=== PATIENT | male | born 1960 | race Caucasian/White ===

== ENCOUNTER 2019-09-27 01:13 | Outpatient (CLI) | payer BC, SELFPAY ==
[2019-09-27 19:18] LABS: SARS-CoV-2 RNA PCR Negative
== END 2019-09-27 01:14 | disposition home or self-care (01) ==
LOC: ANHCOVIDDT 01:14
PROVIDERS: PCP Family Medicine; Visit Provider Internal Medicine Gastroenterology
DX: Z01.818 Encounter for other preprocedural examination (principal); Z11.59 Encounter for screening for other viral diseases
CPT/HCPCS: 87635; C9803; U0003

== ENCOUNTER 2019-09-29 02:30 | Day surgery (SDC) | payer BC, SELFPAY ==
[2019-09-19 13:21] VITALS: BMI 26.1
--- NOTE | 2019-09-29 07:43 | WPDANESEPPF ---
Anes - Initial Pre Proc Eval Procedure: Operation Date: 09/29/19 11:00 Proposed Procedures p Screening Colonoscopy - Kal Lewis MD Date/Time: 09/29/19 07:43 Surgeon: Kal Lewis MD Pre Op Diagnosis: Neoplasm Screening Patient Data Age: 58 Gender: M Height: 1.8 m Weight: 85 kg Allergies Allergy/AdvReac Type Severity Reaction Status Date / Time No Known Drug Allergies Allergy Mild Other Verified 09/19/19 13:21 Home Medications Medication Instructions Recorded Confirmed Type atorvastatin 10 mg tablet 10 mg PO DAILY #90 tablet 08/15/19 09/19/19 Rx lisinopril 40 mg tablet 40 mg PO DAILY #90 tablet 08/15/19 09/19/19 Rx peg 3350-electrolytes 236 240 ml PO Q10M #4000 ml 09/08/19 Rx gram-22.74 gram-6.74 gram-5.86 gram solution Patient hx anesthesia problems: none Family hx anesthesia problems: none PMFSH Past Medical History Medical History (Updated 09/29/19 @ 07:44 by Rajesh Broussard MD) Acute sinusitis Benign colon polyp Cough Encounter for prostate cancer screening Mixed hyperlipidemia Overweight (BMI 25.0-29.9) Primary hypertension Seasonal allergic rhinitis Tobacco use disorder, continuous Social History Social History Smoking packs per day: 1.5 Smoking cigarettes per day: 30.0 Smoking status: Current every day smoker Tobacco type: cigarettes Alcohol intake: current Gender identity (if verbalized by the patient): Male Spiritual care concerns: No Anes - Eval Final PreProcedure Day of Procedure 09/29/19 07:43 Patient weight: overweight Heart: regular rate and rhythm Lungs: clear to auscultation and normal air movement Airway: Mallampati scale class II Neurological: alert and oriented Last oral intake: >/= 8 hours ASA classification: III Emergent: no Anesthetic plan: proceed Anesthesia type and monitoring: general GIVS Informed Consent: The patient's anesthetic plan and its attendant risks and benefits were discussed with the patient/family/POA. Questions were solicited and answers provided to the satisfaction of the patient/family/POA.
[2019-09-29] MEDS: LACTATED RINGERS 1,000 ML 150 ML IV CONT (10:07)
[2019-09-29 10:08] VITALS: BP 143/80; PULSE 75; RESP 20; TEMP 36.6; O2SAT 98
--- NOTE | 2019-09-29 10:35 | PM.HPGS ---
History of Present Illness History of Present Illness Consent: Risks, benefits, and alternatives have been discussed and questions answered. Patient agrees to proceed with procedure. Chief complaint: Neoplasm Screening Narrative: Terry Gonzalez is a 58 year old male with colon polyps 6 years ago Review of Systems Constitutional: Constitutional: Denies headache(s) and Denies weakness Eyes: Eyes: Denies blurry vision ENT: Reports Normal hearing present, Denies headache(s) and Denies neck pain Cardiovascular: Cardiovascular: Denies chest pain and Denies dyspnea Respiratory: Respiratory: Denies dyspnea Gastrointestinal: Gastrointestinal: Reports no additional gastrointestinal complaints Genitourinary: Genitourinary: Denies dysuria Musculoskeletal: Musculoskeletal: Denies neck pain Integumentary/Breasts: Skin/Breast: Denies dry skin Neurologic: Reports Normal hearing present, Denies headache(s) and Denies weakness Psychiatric: Psychiatric: Denies anxiety Endocrine: Endocrine: Denies change in body appearance Hematologic/Lymphatic: Hematologic/Lymphatic: Denies easy bleeding Allergic/Immunologic: Allergic/Immunologic: Denies urticaria PMFSH Past Medical History Medical History (Updated 09/29/19 @ 10:35 by Kal Lewis MD) Acute sinusitis Adenomatous colon polyp Benign colon polyp Cough Encounter for prostate cancer screening Mixed hyperlipidemia Overweight (BMI 25.0-29.9) Primary hypertension Seasonal allergic rhinitis Tobacco use disorder, continuous Social History Social History Smoking packs per day: 1.5 Smoking cigarettes per day: 30.0 Smoking status: Current every day smoker Tobacco type: cigarettes Alcohol intake: current Gender identity (if verbalized by the patient): Male Spiritual care concerns: No Meds Home Medications and Allergies Home Medications Medication Instructions Recorded Confirmed Type atorvastatin 10 mg tablet 10 mg PO DAILY #90 tablet 08/15/19 09/29/19 Rx lisinopril 40 mg tablet 40 mg PO DAILY #90 tablet 08/15/19 09/29/19 Rx Allergies Allergy/AdvReac Type Severity Reaction Status Date / Time No Known Drug Allergies Allergy Mild Other Verified 09/29/19 10:04 Vital Signs Vital Signs - 24 hr 09/29/19 10:08 Temperature 97.9 F Pulse Rate 75 Respiratory Rate 20 Blood Pressure 143/80 H Pulse Oximetry 98 Exam Const: General: comfortable and no acute distress HENMT: General nose exam: Normal nares present Eyes: General: appearance normal, both eyes and all related structures Neck: Neck: no JVD Resp: Auscultation: clear to auscultation bilaterally Cardio: Rate: regular rate Rhythm: regular rhythm GI: Inspection: non-distended GI Palp: Yes Soft to palpation Skin: General skin exam: normal color Neuro: General: gait normal Speech: normal speech Extrem: General: normal to inspection Psych: Mental Status: mental status grossly normal Assessment and Plan Assessment and plan (1) Adenomatous colon polyp: Code(s): D12.6 - Benign neoplasm of colon, unspecified Status: Acute Assessment and Plan: will proceed with colonoscopy (2) Primary hypertension: Code(s): I10 - Essential (primary) hypertension Status: Acute (3) Hemochromatosis, hereditary: Code(s): E83.110 - Hereditary hemochromatosis Status: Acute
[2019-09-29 10:59] VITALS: BP 87/57; PULSE 72; RESP 24; O2SAT 95
[2019-09-29 11:09] VITALS: BP 116/79; PULSE 69; RESP 22; O2SAT 95
[2019-09-29 11:19] VITALS: BP 123/69; PULSE 65; RESP 23; O2SAT 98
== END 2019-09-29 11:30 | disposition home or self-care (01) ==
PROVIDERS: PCP Family Medicine; Visit Provider Internal Medicine Gastroenterology
PROC: 0DJD8ZZ Inspection of Lower Intestinal Tract, Via Natural or Artificial Opening Endoscopic (ICD-10-PCS; CPT 45378; principal; 2019-09-29 11:00)
DX: Z12.11 Encounter for screening for malignant neoplasm of colon (principal); D12.2 Benign neoplasm of ascending colon; D12.8 Benign neoplasm of rectum; K63.5 Polyp of colon; K57.30 Diverticulosis of large intestine without perforation or abscess without bleeding; I10 Essential (primary) hypertension; E78.2 Mixed hyperlipidemia; F17.210 Nicotine dependence, cigarettes, uncomplicated
CPT/HCPCS: 45385; 88305; J2704; J7120

== ENCOUNTER 2020-02-18 20:26 | Emergency (ER) | payer BC, SELFPAY ==
[2020-02-18] VITALS (10 sets, daily range): BP systolic 115–170; BP diastolic 55–83; PULSE 72–87; RESP 13–22; TEMP 35.6; O2SAT 92–98
--- NOTE | ~2020-02-18 | CT_ITS ---
EXAMINATION: CT facial bones wo con DATE: 02/18/2020 21:46 INDICATION: Head injury TECHNIQUE: Computed tomography (CT) of the facial bones and maxillofacial region was performed withou t intravenous contrast. The dose-length product (DLP) was 296.37 mGy-cm. Automated exposure control a nd iterative reconstruction technique were employed. COMPARISON: None. FINDINGS: No acute facial fracture is identified. A polyp or mucous retention cyst is present in the right maxillary sinus. There is right facial and periorbital soft tissue swelling. The visualized por tions of the cervical spine demonstrate mild spondylosis. IMPRESSION: 1. No acute facial fracture identified. Reviewed, dictated and finalized at location A. MAN
--- NOTE | ~2020-02-18 | CT_ITS ---
EXAMINATION: CT brain wo con INDICATION: Head injury COMPARISON: None TECHNIQUE: Standard unenhanced head CT. The dose-length product (DLP) was 605.33 mGy-cm. The mA was a djusted according to patient size. Iterative reconstruction technique was employed. FINDINGS: There is no intracranial hemorrhage, acute infarction, or abnormal mass lesion. The ventric les are normal. There is no abnormal mass effect or midline shift. The jones-white matter differentiat ion is normal. The basal cisterns are patent. The orbits are normal. The paranasal sinuses, mastoids and calvarium are normal. IMPRESSION: 1. No acute intracranial abnormality. Reviewed, dictated and finalized at location A. HEAR OPERATOR
--- NOTE | 2020-02-18 20:51 | ECG_ITS ---
Measurements Intervals [place] Rate: 87 P: 70 VT: 169 QRS: 73 QRSD: 94 T: 34 QT: 338 QTc: 408 Interpretive Statements SINUS RHYTHM MINIMAL Q WAVES- INFERIOR LEADS BASELINE WANDER- I, II BORDERLINE ECG Electronically Signed On 02-19-2020 8:04:08 COMPOSING MACHINE OPERATOR by David Xavier D.O.
--- NOTE | 2020-02-18 21:43 | PC.NURSE ---
Patient taken to CT.
[2020-02-18 21:47] LABS: Basophils Absolute Auto 0.1 K/mm3 (0.0-0.1); Basophils Percent Auto 1.2 % (0.2-1.2); Eosinophils Absolute Auto 0.2 K/mm3 (0-0.3); Eosinophils Percent Auto 2.4 % (0-4.4); Hematocrit 44.2 % (42.0-52.0); Hemoglobin 15.3 g/dL (14.0-18.0); Immature Granulocyte Absolute 0.03 K/mm3 (0.00-0.031); Immature Granulocyte Percent A 0.4 % (0-0.5); Lymphocytes Absolute Auto 3.44 K/mm3 (0.9-3.2); Lymphocytes Percent Auto 40.6 % (18.3-44.2); Mean Corpuscular HGB Conc 34.6 g/dl (32-36); Mean Corpuscular Hemoglobin 35.6 pg (26-34); Mean Corpuscular Volume 102.8 fl (80-100); Monocytes Absolute Auto 1.3 K/mm3 (0.1-0.6); Monocytes Percent Auto 15.1 % (2.6-8.5); Neutrophils Absolute Auto 3.4 K/mm3 (1.3-6.7); Neutrophils Percent Auto 40.3 % (45.5-73.1); Platelet Count Result 232 k/mm3 (150-375); Red Cell Distribution Width 12.4 % (11.5-14.5); White Blood Count 8.5 K/mm3 (4.5-10.0)
[2020-02-18] MEDS: TETANUS,DIPHTHERIA,AC PERTUSSIS ADULT (0.5 ML) BOOSTRIX IM (21:50)
[2020-02-18 21:59] LABS: Lactic Acid Reflex 2.1 mmol/L (0.7-2.1)
[2020-02-18 22:00] LABS: Alanine Aminotransferase 20 U/L (4-50); Albumin Level 4.3 g/dL (3.5-5.1); Alkaline Phosphatase 66 U/L (38-126); Anion Gap 11 mmol/L (8-16); Aspartate Amino Transferase 29 U/L (17-59); Bilirubin,Total 0.4 mg/dL (0.2-1.3); Blood Urea Nitrogen 24 mg/dL (9-20); Calcium 9.1 mg/dL (8.4-10.2); Carbon Dioxide 25 mmol/L (22-30); Chloride 100 mmol/L (98-107); Estimated Glomerular Filt Rate > 60; Glucose 188 mg/dL (75-110); Potassium 3.7 mmol/L (3.4-5.0); Sodium 136 mmol/L (137-145)
[2020-02-18 22:04] LABS: Add Urine Microscopic? YES; Appearance Urine Clear (Clear); Bacteria Urine Trace /hpf; Bilirubin Urine Negative (Negative); Blood Urine Negative (Negative); Color Urine Straw (Yellow); Glucose Urine UA 2+ mg/dL (Negative); Ketones Urine Negative (Negative); Leukocyte Esterase Ur Trace LEU/UL (Negative); Mucus Urine Rare /lpf; Nitrate Urine Negative (Negative); Protein Urine Negative (Negative); RBC Urine 0-2 /hpf (0-2); Specific Grav Ur 1.014 (1.001-1.035); Squamous Epithelial Cell Urine Rare /hpf (Few); Urobilinogen Urine Negative mg/dL (<2.0)
[2020-02-18 22:12] LABS: Troponin I < 0.012 ng/mL (0.000-0.034)
--- NOTE | 2020-02-18 23:14 | ED.SYNCOPE ---
HPI - Syncope General Chief Complaint: Syncope Stated Complaint: fall Time Seen by Provider: 02/18/20 21:14 History of Present Illness HPI narrative: Patient is a 59-year-old gentleman who presents the emergency department with chief complaint of syncope. Patient reports he was at home got up and went to adjust the blinds he got to the blinds adjusted them and then the next the nose he woke up on the ground. The patient struck the right side of his face against the mantle of the fireplace and woke up slightly confused. The family noted no convulsive activity he reported initially no preceding symptoms. Related Data Home Medications Medication Instructions Recorded Confirmed calcium carbonate-vit D3-min tablet 02/18/20 [Calcium-Vitamin D] Allergies Allergy/AdvReac Type Severity Reaction Status Date / Time No Known Drug Allergies Allergy Mild Other Verified 02/18/20 20:38 Review of Systems Review of Systems: Narrative: A 10 system review of systems was completed on the patient and is negative except for what is stated in the HPI. Nursing and ancillary documentation was reviewed. [facility] Past Medical History Medical History Acute sinusitis Adenomatous colon polyp Benign colon polyp BMI 27.0-27.9,adult Cough Encounter for prostate cancer screening Mixed hyperlipidemia Overweight (BMI 25.0-29.9) Primary hypertension Seasonal allergic rhinitis Tobacco use disorder, continuous Family History Family History Mother Acute myocardial infarction, Onset Age: 72 Sibling Acute myocardial infarction, Onset Age: 54 Father Family history of throat cancer, Onset Age: 61 Social History Social History Smoking packs per day: 1.5 Smoking cigarettes per day: 30.0 Smoking status: Current every day smoker ( 1 and a half packs daily) Tobacco type: cigarettes Alcohol intake: current Gender identity (if verbalized by the patient): Male Spiritual care concerns: No Exam Narrative: Exam Narrative: GENERAL: Well-appearing, well-nourished, and in no acute distress. HEAD: Normocephalic, there is an abrasion to the right cheek there is a contusion around the right orbit there is a 2 cm laceration the right scalp. EYES: PERRLA and EOMI. ENT: Nares clear, no rhinorrhea or epistaxis. Mucous membranes moist. NECK: Supple. CHEST: Clear to auscultation. No respiratory distress. HEART: Regular rate and rhythm. No murmur heard. Normal peripheral pulses. ABDOMEN: Soft, nontender, nondistended, normal active bowel sounds. EXTREMITIES: Normal range of motion. No edema. SKIN: Warm, dry, no rash. NEURO: No focal deficits. Alert and oriented x3. PSYCH: Normal mood and affect. Course Course Emergency Course: Patient is currently back to his baseline. CT head shows no acute abnormality CT facial bones shows a questionable left maxilla fracture. Vital Signs Vital signs: Vital Signs Temperature 35.6 C L 02/18/20 20:29 Pulse Rate 87 02/18/20 20:29 Respiratory Rate 18 02/18/20 20:29 Blood Pressure 170/74 H 02/18/20 20:29 Pulse Oximetry 98 02/18/20 20:29 Temperature 35.6 C L 02/18/20 20:29 Pulse Rate 75 02/18/20 23:07 Respiratory Rate 15 02/18/20 23:07 Blood Pressure 131/71 02/18/20 22:14 Pulse Oximetry 95 02/18/20 23:07 Procedures Laceration Laceration 1: Date: 02/18/20 Time: 23:15 Site: scalp Side (If applicable): right Size (cm): 2 Description: linear Depth: simple, single layer Pre-repair: wound explored and irrigated ====== Skin Level ====== Skin layer closed with: marlo Number of sutures: 2 ====== Subcutaneous Layer ====== ====== Muscle Layer ====== ====== Tendon Lay
[2020-02-19 00:44] LABS: Reflex Lactic Acid Yes or No Add Lactic
== END 2020-02-18 23:37 | disposition home or self-care (01) ==
PROVIDERS: Emergency Medicine; Emergency Provider Emergency Medicine; PCP Family Medicine
DX: R55 Syncope and collapse (principal); S01.01XA Laceration without foreign body of scalp, initial encounter; Z87.19 Personal history of other diseases of the digestive system; E78.2 Mixed hyperlipidemia; I10 Essential (primary) hypertension; F17.210 Nicotine dependence, cigarettes, uncomplicated; W18.39XA Other fall on same level, initial encounter; R94.31 Abnormal electrocardiogram [ECG] [EKG]; Z23 Encounter for immunization
CPT/HCPCS: 12001; 36415; 70450; 70486; 80048; 80076; 81001; 83605; 84484; 85025; 90471; 90715; 93005; 99284

== ENCOUNTER 2020-05-06 12:39 | Outpatient (CLI) | payer BC, SELFPAY ==
--- NOTE | 2020-05-06 12:50 | ECHO_ITS ---
Patient Info Name: Terry Gonzalez Age: 59 years : 1960 Gender: Male Ht: 71 in Wt: 193 lbs BSA: 2.11 m2 HR: 67 bpm BP: 171 / 81 mmHg Heart Rhythm: Sinus Rhythm Exam Date: 05/06/2020 1:00 PM Exam Location: [facility] Patient Status: Outpatient Admit Date: 05/06/2020 Staff Ordering Physician: David Xavier DO Benefits Representative: Hiwot Bales RDCS Attending Provider: David Xavier DO Exam Type: CA echo doppler color flow Study Info Indications R55 - Syncope and collapse Complete two-dimensional, color flow and Doppler transthoracic echocardiogram is performed. Summary 1. Complete two-dimensional, color flow and Doppler transthoracic echocardiogram is performed. 2. Left ventricular chamber dimension is normal. 3. Left ventricular systolic function is normal, estimated at 60-65%. 4. The left ventricular diastolic function is grade II diastolic dysfunction. 5. Left atrial chamber dimension is mildly enlarged. 6. The mitral valve has mildly calcified annulus. 7. No pulmonary hypertension, estimated pulmonary arterial systolic pressure is 30 mmHg. Left Ventricle No tissue doppler. Left ventricular chamber dimension is normal. Left ventricular systolic function is normal, estimated at 60-65%. The left ventricular diastolic function is grade II diastolic dysfunction. Right Ventricle Right ventricular chamber dimension is normal. Right ventricular systolic function is normal. Left Atria Left atrial chamber dimension is mildly enlarged. Right Atria Right atrial chamber dimension is normal. Aortic Valve The aortic valve is trileaflet. There is no aortic valve stenosis. There is no aortic valve regurgitation. Pulmonic Valve There is no pulmonic regurgitation. Mitral Valve The mitral valve has mildly calcified annulus. There is no mitral valve stenosis. There is no mitral valve regurgitation. Tricuspid Valve There is no tricuspid valve regurgitation. No pulmonary hypertension, estimated pulmonary arterial systolic pressure is 30 mmHg. Pericardium/Pleural There is no pericardial effusion. Inferior Vena Cava Normal inferior vena cava with >50% collapse upon inspiration consistent with normal right atrial pressure, 5 mmHg. Aorta The aortic root size at the sinus of Valsalva is normal. Left Ventricular Outflow Tract Name Value Normal LVOT 2D LVOT Diameter 2.0 cm LVOT Doppler LVOT Peak Gradient 4 mmHg LVOT Mean Gradient 2 mmHg LVOT VTI 24 cm LVOT VTI/AV VTI Ratio 0.7 LVOT Stroke Volume 73 ml LVOT CO 10.7 l/min LVOT CI 5.1 l/min/m2 Pulmonic Valve Name Value Normal RVOT Doppler RVOT Peak Gradient
== END 2020-05-06 12:40 | disposition home or self-care (01) ==
LOC: ANHCARD 12:40
PROVIDERS: PCP Family Medicine; Visit Provider Internal Medicine Cardiovascular Disease
DX: R55 Syncope and collapse (principal)
CPT/HCPCS: 93306

== ENCOUNTER 2020-07-05 07:31 | Outpatient (CLI) | payer BC, SELFPAY ==
--- NOTE | 2020-07-17 11:43 | WPDHOMESLEEP ---
Sleep Study - Home Unattended Date of Study: 07/05/20 Ordering Provider: David Xavier DO Interpreting Provider: Rossana Rivera MD Home Sleep Study Type: Watch PAT Height: 1.8 m Weight: 87.543 kg Body Mass Index: 26.9 Neck Circumference (inches): 16.25 [place]: 4 Reason for Sleep Study Hypersomnia, fatigue Sleep History Terry Roberts is a 59-year-old man who frequently snores at night, and occasionally it is loud enough that others complain about it. He occasionally has coughing at night. He does not awaken from sleep feeling short of breath. He occasionally has trouble sleeping with a cold. He does not sweat excessively at night or notice heart pounding or beating irregularly night. He occasionally falls asleep during the day, never involuntarily and he never falls asleep while driving. He does not have loss of muscle tone with strong emotion. He does not have daytime difficulties due to excessive sleepiness. He does not feel paralyzed on waking or falling asleep. He rarely has vivid dreamlike scenes upon awakening or falling asleep. He does not feel afraid to go to sleep. He rarely has nightmares. He rarely remembers his dreams. He occasionally has racing thoughts. He does not feel sad, depressed or anxious. He does not have muscular tension. He rarely notices parts of his body jerking. He does not kick at night. He occasionally has crawling and aching feelings in his legs. He occasionally has any kind of pain at night. He does not have morning jaw pain. He occasionally grinds his teeth during sleep. He rarely is bothered by pain during the day. He never is awakened by pain during the night. He rarely wakes up feeling stiff in the morning with sore achy muscles and pain in the neck and spine. He has fatigue and fainting spells. Normal bedtime is 9:00 p.m. falling asleep within 1/2 hour, waking once at night to urinate. He takes him 30 minutes to return to sleep. He wakes at 5:00 a.m. On the weekends, he goes to bed at 10-11 pm, and wakes at 6:00 am. He takes naps in the afternoon or evenings. A short nap can be refreshing. Habits: Tobacco 1.5 ppd. Caffeine: 1 cup a day. Alcohol 4 per day. No recreational drugs. [facility] Past Medical History Medical History (Updated 07/17/20 @ 12:05 by Rossana Rivera MD) Acute bronchitis Acute sinusitis Adenomatous colon polyp Benign colon polyp BMI 27.0-27.9,adult Cough Encounter for prostate cancer screening Hemochromatosis, hereditary Mixed hyperlipidemia Overweight (BMI 25.0-29.9) Primary hypertension Scalp laceration Seasonal allergic rhinitis Syncope Tobacco use disorder, continuous Family History Family History Mother Acute myocardial infarction, Onset Age: 72 Sibling Acute myocardial infarction, Onset Age: 54 Father Family history of throat cancer, Onset Age: 61 Social History Social History Smoking packs per day: 1.5 Smoking cigarettes per day: 30.0 Smoking status: Current every day smoker Tobacco type: cigarettes Alcohol intake: current Gender identity (if verbalized by the patient): Male Spiritual care concerns: No Medications Home Medications Medication Instructions Recorded Confirmed Type atorvastatin 10 mg tablet 10 mg PO DAILY #90 tablet 08/15/19 05/13/20 Rx lisinopril 40 mg tablet 40 mg PO DAILY #90 tablet 08/15/19 05/13/20 Rx cholecalciferol (vitamin D3) 10 10 mcg PO DAILY 04/05/20 05/13/20 History mcg (400 unit) capsule azithromycin 250 mg tablet See Rx Instructions PO .COMPLEX #6 06/03/20 Rx tablet prednisone 20 mg tablet 20 mg PO DAILY #5 tablet 06/03/20 Rx Sleep Procedure The sleep study was completed using [employer] a technically adequate device with seven channels: peripheral arterial tone, actigraphy, body position, snore, respiratory movement, pulse o
[2020-07-17 11:54] VITALS: BMI 26.9
== END 2020-07-05 07:32 | disposition home or self-care (01) ==
LOC: ANHCSM 07:32
PROVIDERS: PCP Family Medicine; Visit Provider Internal Medicine Cardiovascular Disease
DX: G47.10 Hypersomnia, unspecified (principal); G47.33 Obstructive sleep apnea (adult) (pediatric); G47.31 Primary central sleep apnea
CPT/HCPCS: 95800

== ENCOUNTER 2020-09-27 08:56 | Outpatient (CLI) | payer BC, SELFPAY ==
--- NOTE | 2020-10-25 12:14 | WPDSLEEPSTUD ---
Sleep Study Date of Study: 09/27/20 Ordering Provider: David Xavier DO Interpreting Physician: Rossana Rivera MD Sleep Study Type: CPAP Titration Height: 1.8 m Weight: 87.543 kg Body Mass Index: 26.9 Neck Circumference (inches): 16.25 [place]: 6 Reason for Sleep Study Home sleep test July 05, 2020 showing moderate obstructive sleep apnea, AHI 17.2, with central apnea hypopnea index 7.9, presents for CPAP titration. Sleep History Terry Roberts is a 59-year-old man who frequently snores at night, and occasionally it is loud enough that others complain about it. He occasionally has coughing at night. He does not awaken from sleep feeling short of breath. He occasionally has trouble sleeping with a cold. He does not sweat excessively at night or notice heart pounding or beating irregularly night. He occasionally falls asleep during the day, never involuntarily and he never falls asleep while driving. He does not have loss of muscle tone with strong emotion. He does not have daytime difficulties due to excessive sleepiness. He does not feel paralyzed on waking or falling asleep. He rarely has vivid dreamlike scenes upon awakening or falling asleep. He does not feel afraid to go to sleep. He rarely has nightmares. He rarely remembers his dreams. He occasionally has racing thoughts. He does not feel sad, depressed or anxious. He does not have muscular tension. He rarely notices parts of his body jerking. He does not kick at night. He occasionally has crawling and aching feelings in his legs. He occasionally has any kind of pain at night. He does not have morning jaw pain. He occasionally grinds his teeth during sleep. He rarely is bothered by pain during the day. He never is awakened by pain during the night. He rarely wakes up feeling stiff in the morning with sore achy muscles and pain in the neck and spine. He has fatigue and fainting spells. Normal bedtime is 9:00 p.m. falling asleep within 1/2 hour, waking once at night to urinate. He takes him 30 minutes to return to sleep. He wakes at 5:00 a.m. On the weekends, he goes to bed at 10-11 pm, and wakes at 6:00 am. He takes naps in the afternoon or evenings. A short nap can be refreshing. Habits: Tobacco 1.5 ppd. Caffeine: 1 cup a day. Alcohol 4 per day. No recreational drugs. [facility] Past Medical History Medical History (Updated 10/25/20 @ 12:56 by Rossana Rivera MD) Acute bronchitis Acute sinusitis Adenomatous colon polyp Benign colon polyp BMI 27.0-27.9,adult Cough Encounter for prostate cancer screening Hemochromatosis, hereditary Mixed hyperlipidemia Obstructive sleep apnea (07/05/20) AHI 17.2 with desaturation to 84% with central sleep apnea on home sleep study 07/05/2020 Overweight (BMI 25.0-29.9) Primary hypertension Scalp laceration Seasonal allergic rhinitis Syncope Tobacco use disorder, continuous Family History Family History Mother Acute myocardial infarction, Onset Age: 72 Sibling Acute myocardial infarction, Onset Age: 54 Father Family history of throat cancer, Onset Age: 61 Social History Social History Smoking packs per day: 1.5 Smoking cigarettes per day: 30.0 Smoking status: Current every day smoker Tobacco type: cigarettes Alcohol intake: current Gender identity (if verbalized by the patient): Male Spiritual care concerns: No Medications Home Medications Medication Instructions Recorded Confirmed Type atorvastatin 10 mg tablet 10 mg PO DAILY #90 tablet 08/26/20 Rx lisinopril 40 mg tablet 40 mg PO DAILY #90 tablet 10/22/20 Rx Sleep Procedure This test was performed using the [employer] multiple channel system including EOG, EEG, submental EMG, EKG, nasal and oral airflow using thermistors and nasal pressure sensors, chest and abdominal belts for body p
[2020-10-25 13:26] VITALS: BMI 26.9
== END 2020-09-28 06:53 | disposition home or self-care (01) ==
LOC: ANHCSM 09:01
PROVIDERS: PCP Family Medicine; Visit Provider Internal Medicine Cardiovascular Disease
DX: G47.30 Sleep apnea, unspecified (principal); G47.33 Obstructive sleep apnea (adult) (pediatric)
CPT/HCPCS: 95811

== ENCOUNTER 2021-01-06 14:06 | Outpatient (CLI) | payer BC, SELFPAY ==
--- NOTE | ~2021-01-06 | XR_ITS ---
EXAMINATION: XR chest 2V 01/06/2021 14:22 INDICATION: Acute bronchitis. Cough. PROCEDURE: 2 view chest COMPARISON: 05/05/2018 FINDINGS: No focal pneumonia, edema. There are calcified granulomas of the left lung. Heart size is n ormal. The cardiomediastinal silhouette is within normal limits. There are no pleural effusions. Th ere is no pneumothorax suspected. IMPRESSION: 1: NO ACUTE CARDIOPULMONARY DISEASE. Reviewed, dictated and finalized at location A. UTER SCIENCE INTERN
== END 2021-01-06 14:07 | disposition home or self-care (01) ==
LOC: ANHIMG 14:09
PROVIDERS: PCP Family Medicine; Visit Provider Family Medicine
DX: J20.9 Acute bronchitis, unspecified (principal)
CPT/HCPCS: 71046

== ENCOUNTER → 2021-08-29 10:02 | Outpatient (CLI) | payer BC, SELFPAY ==
--- NOTE | ~2021-08-29 | XR_ITS ---
EXAMINATION: XR chest 2V 08/29/2021 10:16 INDICATION: Cough PROCEDURE: 2 view chest COMPARISON: Comparison to multiple prior studies sequentially, with oldest reviewed study dated 08/2018. FINDINGS: The lungs are clear. The cardiomediastinal silhouette is within normal limits. There are no pleural effusions. There is no pneumothorax suspected. There are calcified granulomas of the lef t lung. IMPRESSION: 1: NO ACUTE CARDIOPULMONARY DISEASE. Reviewed, dictated and finalized at location A.
== END ==
PROVIDERS: PCP Family Medicine; Visit Provider Nurse Practitioner Family
DX: R05.9 Cough, unspecified (principal)
CPT/HCPCS: 71046

== ENCOUNTER 2021-11-04 00:59 | Day surgery (SDC) | payer BC, SELFPAY ==
[2021-10-23 10:37] VITALS: BMI 26.7
[2021-11-04 09:20] VITALS: BP 164/99; PULSE 67; RESP 18; TEMP 36.4; O2SAT 98
[2021-11-04] MEDS: LACTATED RINGERS 1,000 ML 150 ML IV CONT (09:29)
--- NOTE | 2021-11-04 09:38 | WPDANESEPPF ---
Anes - Initial Pre Proc Eval Procedure: Operation Date: 11/04/21 11:00 Proposed Procedures p Esophagogastroduodenoscopy - Kal Lewis MD Date/Time: 11/04/21 09:38 Surgeon: Kal Lewis MD Pre Op Diagnosis: cough Patient Data Age: 60 Gender: M Height: 1.8 m Weight: 87.7 kg Last Vital Signs Temp 36.4 C 11/04/21 09:20 Pulse 67 11/04/21 09:20 Resp 18 11/04/21 09:20 BP 164/99 H 11/04/21 09:20 Pulse Ox 98 11/04/21 09:20 O2 Del Method Room Air 11/04/21 09:20 Allergies Allergy/AdvReac Type Severity Reaction Status Date / Time No Known Drug Allergies Allergy Mild Other Verified 11/04/21 09:19 Home Medications Medication Instructions Recorded Confirmed Type atorvastatin 10 mg tablet 10 mg PO DAILY #90 tabs 08/21/21 10/23/21 Rx cholecalciferol (vitamin D3) 50 50 mcg PO DAILY 08/29/21 10/23/21 History mcg (2,000 unit) capsule irbesartan 150 mg tablet 150 mg PO DAILY #90 tabs 09/04/21 10/23/21 Rx famotidine 40 mg tablet (Pepcid) 40 mg PO DAILY #30 tabs 09/05/21 10/23/21 Rx Patient hx anesthesia problems: none Family hx anesthesia problems: none Results Review: All pre-operative results and documents have been reviewed as part of the pre-operative evaluation. [facility] Past Medical History Medical History Acute bronchitis Acute sinusitis Adenomatous colon polyp BMI 27.0-27.9,adult Cough Cough Encounter for prostate cancer screening PSA normal at 0.45 on 08/29/2021. Family history of esophageal cancer Hemochromatosis, hereditary Total iron elevated at 306 with 91% saturation and ferritin 120 with hemoglobin 15.4 on 08/29/2021. Mixed hyperlipidemia Total cholesterol 176, triglycerides 92, HDL 68 LDL 89 on 08/29/2021. Obstructive sleep apnea (07/05/20) AHI 17.2 with desaturation to 84% with central sleep apnea on home sleep study 07/05/2020. CPAP titration on 09/27/2020 with no clear pressure setting with suggested 14 cm water pressure with 1 cm EPR with 45 minutes ramp with rest med medium AirFit F20 fullface mask with heated humidity Overweight (BMI 25.0-29.9) Primary hypertension Scalp laceration Seasonal allergic rhinitis Syncope Tobacco use disorder, continuous Surgical History Surgical History (Updated 11/04/21 @ 09:42 by Bob Elizalde MD) H/O colonoscopy Family History Family History Mother Acute myocardial infarction, Onset Age: 72 Sibling Acute myocardial infarction, Onset Age: 54 Father Family history of throat cancer, Onset Age: 61 Social History Social History Smoking packs per day: 1.5 Smoking cigarettes per day: 30.0 Years smoked: 33 Smoking pack-years: 49.50 Smoking status: Heavy tobacco smoker Tobacco type: cigarettes Alcohol intake: current Drinks per week: 28 Substance use: never Substance use type: does not use Living arrangements: with family Gender identity (if verbalized by the patient): Male Spiritual care concerns: No Anes - Eval Final PreProcedure Day of Procedure 11/04/21 09:38 Patient weight: overweight Heart: regular rate and rhythm Lungs: clear to auscultation Airway: Mallampati scale class II Neurological: alert and oriented Last oral intake: >/= 8 hours ASA classification: III Emergent: no Anesthetic plan: proceed Anesthesia type and monitoring: general GIVS Results Review: All pre-operative results and documents have been reviewed as part of the pre-operative evaluation. Informed Consent: The patient's anesthetic plan and its attendant risks and benefits were discussed with the patient/family/POA. Questions were solicited and answers provided to the satisfaction of the patient/family/POA.
--- NOTE | 2021-11-04 10:26 | PM.HPGS ---
History of Present Illness History of Present Illness Consent: Risks, benefits, and alternatives have been discussed and questions answered. Patient agrees to proceed with procedure. Chief complaint: cough Narrative: Terry Gonzalez is a 60 year old male with cough and spells of passing out, denies gerd symptoms though. Father had esophageal cancer Review of Systems Constitutional: Constitutional: Denies headache(s) and Denies weakness Eyes: Eyes: Denies blurry vision ENT: Reports Normal hearing present, Denies headache(s) and Denies neck pain Cardiovascular: Cardiovascular: Denies chest pain and Denies dyspnea Respiratory: Respiratory: Denies dyspnea Gastrointestinal: Gastrointestinal: Reports no additional gastrointestinal complaints Genitourinary: Genitourinary: Denies dysuria Musculoskeletal: Musculoskeletal: Denies neck pain Integumentary/Breasts: Skin/Breast: Denies dry skin Neurologic: Reports Normal hearing present, Denies headache(s) and Denies weakness Psychiatric: Psychiatric: Denies anxiety Endocrine: Endocrine: Denies change in body appearance Hematologic/Lymphatic: Hematologic/Lymphatic: Denies easy bleeding Allergic/Immunologic: Allergic/Immunologic: Denies urticaria [facility] Past Medical History Medical History Acute bronchitis Acute sinusitis Adenomatous colon polyp BMI 27.0-27.9,adult Cough Cough Encounter for prostate cancer screening PSA normal at 0.45 on 08/29/2021. Family history of esophageal cancer Hemochromatosis, hereditary Total iron elevated at 306 with 91% saturation and ferritin 120 with hemoglobin 15.4 on 08/29/2021. Mixed hyperlipidemia Total cholesterol 176, triglycerides 92, HDL 68 LDL 89 on 08/29/2021. Obstructive sleep apnea (07/05/20) AHI 17.2 with desaturation to 84% with central sleep apnea on home sleep study 07/05/2020. CPAP titration on 09/27/2020 with no clear pressure setting with suggested 14 cm water pressure with 1 cm EPR with 45 minutes ramp with rest med medium AirFit F20 fullface mask with heated humidity Overweight (BMI 25.0-29.9) Primary hypertension Scalp laceration Seasonal allergic rhinitis Syncope Tobacco use disorder, continuous Surgical History Surgical History (Updated 11/04/21 @ 09:42 by Bob Elizalde MD) H/O colonoscopy Family History Family History Mother Acute myocardial infarction, Onset Age: 72 Sibling Acute myocardial infarction, Onset Age: 54 Father Family history of throat cancer, Onset Age: 61 Social History Social History Smoking packs per day: 1.5 Smoking cigarettes per day: 30.0 Years smoked: 33 Smoking pack-years: 49.50 Smoking status: Heavy tobacco smoker Tobacco type: cigarettes Alcohol intake: current Drinks per week: 28 Substance use: never Substance use type: does not use Living arrangements: with family Gender identity (if verbalized by the patient): Male Spiritual care concerns: No Meds Home Medications and Allergies Home Medications Medication Instructions Recorded Confirmed Type atorvastatin 10 mg tablet 10 mg PO DAILY #90 tabs 08/21/21 10/23/21 Rx cholecalciferol (vitamin D3) 50 50 mcg PO DAILY 08/29/21 10/23/21 History mcg (2,000 unit) capsule irbesartan 150 mg tablet 150 mg PO DAILY #90 tabs 09/04/21 10/23/21 Rx famotidine 40 mg tablet (Pepcid) 40 mg PO DAILY #30 tabs 09/05/21 10/23/21 Rx Allergies Allergy/AdvReac Type Severity Reaction Status Date / Time No Known Drug Allergies Allergy Mild Other Verified 11/04/21 09:19 Vital Signs Vital Signs - 24 hr 11/04/21 09:20 Temperature 97.6 F Pulse Rate 67 Respiratory Rate 18 Blood Pressure 164/99 H Pulse Oximetry 98 Oxygen Delivery Room Air Exam Const: General: comfortable and no acute dist
[2021-11-04 10:52] VITALS: BP 109/62; PULSE 74; RESP 19; O2SAT 98
[2021-11-04 11:02] VITALS: BP 139/88; PULSE 67; RESP 18; O2SAT 99
[2021-11-04 11:12] VITALS: BP 143/95; PULSE 64; RESP 22; O2SAT 100
== END 2021-11-04 11:25 | disposition home or self-care (01) ==
PROVIDERS: PCP Family Medicine; Visit Provider Internal Medicine Gastroenterology
PROC: 0DJ08ZZ Inspection of Upper Intestinal Tract, Via Natural or Artificial Opening Endoscopic (ICD-10-PCS; CPT 43235; principal; 2021-11-04 11:00)
DX: R05.9 Cough, unspecified (principal); K20.90 Esophagitis, unspecified without bleeding; Z80.0 Family history of malignant neoplasm of digestive organs; K22.2 Esophageal obstruction; K44.9 Diaphragmatic hernia without obstruction or gangrene; E78.2 Mixed hyperlipidemia; I10 Essential (primary) hypertension; G47.33 Obstructive sleep apnea (adult) (pediatric); F17.210 Nicotine dependence, cigarettes, uncomplicated
CPT/HCPCS: 43239; 88305; J2704; J7120

== ENCOUNTER → 2022-03-11 08:48 | Outpatient (CLI) | payer BC, SELFPAY ==
--- NOTE | ~2022-03-11 | US_ITS ---
EXAMINATION: US carotid duplex BI DATE: 03/11/2022 09:12 INDICATION: Right-sided carotid bruit TECHNIQUE: Grayscale, color Doppler, and pulsed Doppler images of the cervical carotid arteries were obtained. The degree of vessel stenosis is placed in one of the following categories: normal, <50%, 5 0-69%, >=70% but less than near-occlusion, near-occlusion, or total occlusion. Note that percent sten osis relative to normal distal artery lumen diameter is indirectly measured from velocity measurement s as described by Obdulio, et al. Radiology 2003; 229:340-346. COMPARISON: None. FINDINGS: RIGHT: The right common carotid artery (CCA) peak systolic velocity (PSV) is 119 cm/s. The right internal ca rotid artery (ICA) PSV is 125 cm/s. The right ICA end-diastolic velocity (EDV) is 20 cm/s. The right ICA/CCA PSV ratio is 1.0. Grayscale and color Doppler images including secondary Doppler criteria yie ld an estimate of <50% diameter reduction from plaque in the ICA. The external carotid artery (ECA) P SV is 348 cm/s. There is antegrade flow in the right vertebral artery. LEFT: The left CCA PSV is 166 cm/s. The left ICA PSV is 136 cm/s. The left ICA EDV is 28 cm/s. The left ICA /CCA PSV ratio is 0.8. Grayscale and color Doppler images including secondary Doppler criteria yield an estimate of <50% diameter reduction from plaque in the ICA. The ECA PSV is 174 cm/s. There is ante grade flow in the left vertebral artery. IMPRESSION: 1. <50% stenosis in the right internal carotid artery. 2. <50% stenosis in the left internal carotid artery. Reviewed, dictated and finalized at location [facility]. [facility]
== END ==
PROVIDERS: PCP Family Medicine; Visit Provider Family Medicine
DX: R09.89 Other specified symptoms and signs involving the circulatory and respiratory systems (principal); I65.23 Occlusion and stenosis of bilateral carotid arteries
CPT/HCPCS: 93880

== ENCOUNTER 2024-04-26 08:16 | Outpatient (CLI) | payer BC, SELFPAY ==
--- NOTE | ~2024-04-26 | XR_ITS ---
EXAMINATION: XR barium swallow DATE: 04/26/2024 08:48 INDICATION: Dysphagia. TECHNIQUE: The patient drank thick barium, gas-producing crystals, and thin barium. Fluoroscopy of th e hypopharynx and esophagus was performed. Fluoroscopy exposure time was 0.3 minutes. The total numbe r of images was 254. The dose-area product was 1.277 Gy-cm^2. COMPARISON: None. FINDINGS: There is no mass or stricture of the esophagus. Esophageal motility is normal. There is no hiatal hernia. There was no gastroesophageal reflux with provocative maneuvers. IMPRESSION: 1. Normal esophagram. Reviewed, dictated and finalized at location [] UNT[employer] PAYABLE SUPERVISOR IMPRESSION: 1. Normal esophagram.
--- OUTSIDE RECORDS SUMMARY | 2024-04-26 08:30 | XMS_ITS | Clinical Summary ---
Author Organization [facility] [employer] Address [address] [place] [address] Care Team Providers Care Telecommunications Cable Jointer Name Role Phone Thang Castro MD Primary Care Provider [phone] Source Comments [facility] [employer],non-owned Affiliates and Associated Physician Practices is amultiple site organization consisting of ambulatory clinics and hospital sitesin [place], [place] and [place]. This disclosure is being madepursuant to the Care Everywhere program and may not contain all information available regarding this patient. Last updated 17.[facility] [employer] Allergies No known active allergies Medications * Be aware that medications may not be up to date on this document. Alwaysverify current medications with the patient. Medication Sig Dispensed Refills Start Date End Date Status atorvastatin (LIPITOR) 10 MG tablet Take 1 (one) tablet by mouth DAILY 10/18/2015 Active irbesartan (Avapro) 300 MG tablet Take 1 (one) tablet by mouth once daily 03/09/2022 Active buPROPion XL 24hr (Wellbutrin-XL) 150 MG tablet Take 1 (one) tablet by mouth every morning 03/09/2022 Active meloxicam (Mobic) 15 MG tablet Take 1 (one) tablet by mouth once daily as needed FOR PAIN 03/09/2022 Active Vitamin D3 (Cholecalciferol) 50 MCG (1999 UT) capsule 04/14/2021 Act marlen Active Problems Problem Noted Date Diagnosed Date Increased abdominal girth 01/19/2024 Tobacco abuse 04/07/2022 Essential (primary) hypertension 06/10/2015 Hereditary hemochromatosis 03/28/2015 Overview (04/01/2023): 03/30/23 Fibroscan CAP 287, LSM 6.8 kPa Encounters Date Type Department Care Team Description 03/27/2024 9:30 AM FEATHER SEPARATOR - 03/27/2024 11:59 PM FEATHER SEPARATOR Hospital Encounter [facility] [address] [place] [address] Discharge Disposition: Home or Self Care 03/27/2024 Travel 02/08/2024 Telephone [facility] [address] [facility] [place] [address] Kate Pham RN General (US abd & Labs) 01/31/2024 7:15 AM FEATHER SEPARATOR - 01/31/2024 11:59 PM FEATHER SEPARATOR Hospital Encounter [facility] [address] [place] [address] Nando Aguirre MD Discharge Disposition: Home or Self Care 01/31/2024 Travel from Last 3 Months Immunizations Name Administration Dates Next Due INFLUENZA VACCINE 11/27/2020,12/25/2019 Family History Medical History Relation Name Comments CAD (Coronary Artery Disease) Brother 1 Status: Diabetes Brother 2 Status: Alive Other Brother 3 pancreatitis Cancer Father esophageal canc er ; Status: Hypertension Father CAD (Coronary Artery Disease) Mother Status: Relation Name Status Comments Brother 1 Brother 2 Brother 3 Father Mother Social History Tobacco Use Types Packs/Day Years Used Date Smoking Tobacco: Every Day Cigarettes Smokeless Tobacco: Never Tobacco Cessation:Ready to Q uit: Not Asked; Counseling Given: Not Answered Alcohol Use Standard Drinks/Week Comments Yes 0 (1 standard drink = 0.6 oz pur e alcohol) 4 beers/weekend Sex and Gender Information Value Date Recorded Sex Assigned at Not on file Gender Identity Male 07/23/2023 1:45 PM CDT Sexual Orientation Not on file Last Filed Vital Signs Vital Sign Reading Time Taken Comments Blood Pressure 139/85 03/27/2024 9:38 AM FEATHER SEPARATOR Pulse 95 03/27/2024 9:38 AM FEATHER SEPARATOR Temperature 36.8 C (98.2 F) 03/27/2024 9:38 AM FEATHER SEPARATOR Respiratory Rate 18 03/27/2024 9:38 AM FEATHER SEPARATOR Oxygen Saturation 94% 03/27/2024 9:38 AM FEATHER SEPARATOR Inhaled Oxygen Concentration - - Weight 90.6 kg (199 lb 12.8 oz) 03/30/2023 9:55 AM FEATHER SEPARATOR Height 180.3 cm (5' 11 ) 03/30/2023 9:55 AM FEATHER SEPARATOR Body Mass Index 27.87 03/30/2023 9:55 AM FEATHER SEPARATOR Plan of Treatment Upcoming Encounters Date Type Department Care Team (Late st Contact Info) Description 05/22/2024 9:30 AM CDT Appointment [facility] [address] [place] [address] 06/06/2024 1:30 PM CDT Office Visit [facility] [address] [facility] [place] [id number] Nando Aguirre MD [address] [place] [address] [address] [facility] [place] [address] Health Maintenance Due Date Last Done Comments COLOGUARD (AGES 45-75) - COLON CA SCREENING 1962 COLON MONITORING 1962 COLONOSCOPY - COLON CA SCREENING 1962 CT COLONOGRAPHY - COLON CA SCREENING 1962 Colorectal Cancer Screening 1962 FIT - COLON CA SCREENING 1962 FLEX SIG - COLON CA SCREENING 1962 HIV SCREENING 1977 DTAP/TDAP/TD VACCINES (1 - Tdap) 1981 PNEUMOCOCCAL VACCINE 50+ (1 of 2 - PCV) 1981 ZOSTER VACCINE (1 of 2) 2012 COVID-19 VACCINE ( - season) 2023 02/05/2021, 05/20/2020, 04/18/2020 INFLUENZA VACCINE (#1) 2023 3, 12/26/2020, 11/27/2020, Additional history exists DEPRESSION SCREENING 03/01/2024 SCREENING FOR DIABETES 01/27/2027 4, 09/13/2023, 01/25/2023, Additional history exists Respiratory Syncytial Virus (RSV) Vaccine Pt: or over 60 yrs (1 - 1-dose 75+ series) 2037 HEPATITIS C SCREENING Completed 01/25/2023 HEPATITIS B VACCINE Aged Out No longe r eligible based on patient's age to complete this topic HIB VACCINE Aged Out No longer eligi ble based on patient's age to complete this topic HPV VACCINE Aged Out No longer eligi ble based on patient's age to complete this topic MENINGOCOCCAL (Group B) VACCINE Aged Out No longer eligible based on patient's age to complete this topic MENINGOCOCCAL VACCINE Aged Out No wilmer césar eligible based on patient's age to complete this topic Goals Goal Patient Goal Type Associated Problems Recent Progress Patient-Stated? Author Medication Management General On track( 10:01 AM FEATHER SEPARATOR) No Yee Garcia, RN Note: Expected end date: Ongoing Interventions: Take all medications as prescribed Let your doctor know right away about any changes in your medications Make sure to request a refill of your medication at least one week prior to your last dose Safety General On track( 10:01 AM FEATHER SEPARATOR) No Denise Sanchez, ANGELA Note: Expected end date: onging Interventions: Your nurse will assess your risk for falls/injury each visit Use appropriate and safe transfer methods Be aware of medications that could predispose you to falling Wear non-skid/rubber sole footwear Use some light at night in your room Procedures Procedure Name Priority Date/Time Associated Diagnosis Comments HEMOGLOBIN - POCT (IP) [facility] Routine 03/27/2024 9:35 AM FEATHER SEPARATOR Hereditary hemochromatosis (HCC) US ABDOMEN LIMITED Routine 01/31/2024 8: 32 AM FEATHER SEPARATOR Hereditary hemochromatosis (HCC) Increased abdominal girth COMPREHENSIVE METABOLIC PANEL Routine 01/28/2024 6:15 AM FEATHER SEPARATOR Hereditary hemochromatosis (HCC) Increased abdominal girth CBC W AUTO DIFFERENTIAL Routine 01/28/2024 6:15 AM FEATHER SEPARATOR Hereditary hemochromatosis (HCC) Increased abdominal girth HEPATITIS C AB W/RFLX TO HCV RNA QN PCR Routine 01/25/2023 7:24 AM FEATHER SEPARATOR Hereditary hemochromatosis (HCC) from Last 3 Months or Most Recently Relevant to Health Maintenance Results * HEMOGLOBIN - POCT (IP) AP[facility] (03/27/2024 9:35 AM FEATHER SEPARATOR) Hemoglobin 15.5 13.5 - 17.5 g/dL [facility] Blood BLOOD SPECIMEN / Unknown 03/27/2024 9:35 AM FEATHER SEPARATOR Rebecca Jensen PA-C LAB - POINT OF CARE ORDERABLES [facility] [address] [phone] * US Abdomen Limited (01/31/2024 8:32 AM FEATHER SEPARATOR) Anatomical Region Laterality Modality Abdomen Ultrasound 01/31/2024 8:32 AM FEATHER SEPARATOR Impressions 01/31/2024 9:58 AM FEATHER SEPARATOR IMPRESSION: 1.Diffuse hepatic steatosis without discrete hepatic lesion or intrahepatic biliary dilatation. 2.No evidence of cholelithiasis or acute cholecystitis. 3.The body of the pancreas appears heterogeneous in echotexture is nonspecific but can be seen in acute pancreatitis. Recommend correlation with patient's symptoms and laboratory values. > Dictated by Susan Gore Dr, MD (resident care aide). I, Jorden Esparza MD have personally reviewed and interpreted this examination/study. > Interpreting Provider: Jorden Esparza MD on 01/31/2024 9:58 AM Narrative 01/31/2024 9:58 AM FEATHER SEPARATOR PROCEDURE: US ABDOMEN LIMITED, DATE/TIME OF EXAM: 01/31/2024 8:32 AM, LOCATION [facility] INDICATION: E83.110: Hereditary hemochromatosis (HCC) R19.8: Increased abdominal girth ADDITIONAL CLINICAL INFORMATION: Ordering Provider Reason For Exam: hemochromatosis new increased abd girth r/o cirrhosis and ascites Technologist Note: Additional: COMPARISON: None. FINDINGS: The liver is increased in echogenicity, consistent with diffuse hepatic steatosis. There is smooth liver surface contour. A cyst is present within the left lobe of the liver measuring up to 0.8 centimeter. Color Doppler evaluation demonstrates patency of the hepatic and portal veins. No gallstones or pericholecystic fluid is seen. The gallbladder wall is normal in thickness, measuring 2 mm. Sonographic Moore's sign is negative. The common bile duct is nondilated, measuring 3 mm. The right kidney measures 11.2 cm in length. Limited views of the right kidney reveal no evidence of nephrolithiasis or hydronephrosis. The spleen measures 9.4 cm in length. The body of the pancreas appears heterogeneous in echotexture without evidence of ductal dilation. No ascites is present. Procedure Note Jorden Esparza MD - 01/31/2024 PROCEDURE: US ABDOMEN LIMITED, DATE/TIME OF EXAM: 01/31/2024 8:32 AM, LOCATION [facility] INDICATION: E83.110: Hereditary hemochromatosis (HCC) R19.8: Increased abdominal girth ADDITIONAL CLINICAL INFORMATION: Ordering Provider Reason For Exam: hemochromatosis new increased abdgirth r/o cirrhosis and ascites Technologist Note: Additional: COMPARISON: None. FINDINGS: The liver is increased in echogenicity, consistent with diffuse hepatic steatosis. There is smooth liver surface contour. A cyst is presentwithin the left lobe of the liver measuring up to 0.8 centimeter. Color Doppler evaluation demonstrates patency of the hepatic and portal veins. No gallstones or pericholecystic fluid is seen. The gallbladder wall is normal in thickness, measuring 2 mm. Sonographic Moore's sign isnegative. The common bile duct is nondilated, measuring 3 mm. The right kidney measures 11.2 cm in length. Limited views of the right kidney reveal no evidence of nephrolithiasis or hydronephrosis. Thespleen measures 9.4 cm in length. The body of the pancreas appearsheterogeneous in echotexture without evidence of ductal dilation. No ascites is present. IMPRESSION: 1.Diffuse hepatic steatosis without discrete hepatic lesion orintrahepatic biliary dilatation. 2.No evidence of cholelithiasis or acute cholecystitis. 3.The body of the pancreas appears heterogeneous in echotexture is nonspecific but can be seen in acute pancreatitis. Recommend correlation with patient's symptoms and laboratory values. > Dictated by Susan Gore Dr, MD (resident care aide). I, Jodren Esparza MD have personally reviewed and interpreted this examination/study. > Interpreting Provider: Jorden Esparza MD on 01/31/2024 9:58 AM Nando Aguirre MD US ORDERABLES * (ABNORMAL) CBC WITH DIFFERENTIAL (01/28/2024 6:15 AM FEATHER SEPARATOR) White Blood Cell Count 9.4 3.8 - 10.8 Thousand/ uL [facility] RBC 3.93(L) 4.20 - 5.80 Million/u L [facility] Hemoglobin 13.8 13.2 - 17.1 g/dL [facility] Hematocrit 40.2 38.5 - 50.0 % [facility] MCV 102.3(H) 80.0 - 100.0 fL [facility] MCH 35.1(H) 27.0 - 33.0 pg [facility] MCHC 34.3 32.0 - 36.0 g/dL [facility] Comment: For adults, a slight decrease in the calculated MCHC value (in the range of 30 to 32 g/dL) is most likely not clinically significant; however, it should be interpreted with caution in correlation with other red cell parameters and the patient's clinical condition. RDW 12.1 11.0 - 15.0 % [facility] Platelet Count 390 140 - 400 Thousand/ uL [facility] MPV 11.1 7.5 - 12.5 fL [facility] Neutrophil Absolute 5443 1500 - 7800 cells/uL [facility] Lymphocytes Absolute 2425 850 - 3900 cells/uL [facility] Absolute Monocytes 1278(H) 200 - 950 cells/uL [facility] Eosinophils Absolute 141 15 - 500 cells/uL [facility] Basophils Absolute 113 0 - 200 cells/uL [facility] Granulocytes % 57.9 % [facility] Lymphocytes % 25.8 % [facility] Monocytes % 13.6 % [facility] Eosinophils % 1.5 % [facility] Basophils % 1.2 % [facility] Comment: Test Performed at: [facility] [address] [place] [address] MIKKI HARRIS MD Blood BLOOD SPECIMEN / Unknown 01/28/2024 6:15 AM FEATHER SEPARATOR 01/28/2024 6:16 AM FEATHER SEPARATOR Nando Aguirre MD LAB - HEMATOLOGY ORD ERABLES Performing Organization Address [facility]/ZIP Co de Phone Number [facility] [address] [place] [address] * (ABNORMAL) COMPREHENSIVE METABOLIC PANEL (01/28/2024 6:15 AM FEATHER SEPARATOR) Glucose 105(H) 65 - 99 mg/dL [facility] Comment: Fasting reference interval For someone without known diabetes, a glucose value between 100 and 125 mg/dL is consistent with prediabetes and should be confirmed with a follow-up test. BUN 13 7 - 25 mg/dL [facility] Creatinine 0.94 0.70 - 1.35 mg/dL [facility] eGFR by Cystatin C 92 > OR = 60 mL/min/1. 73m2 [facility] BUN/Creatinine Ratio SEE NOTE: 6 - (calc) [facility] Comment: Not Reported: BUN and Creatinine are within reference range. Sodium 136 135 - 146 mmol/L [facility] Potassium 5.6(H) 3.5 - 5.3 mmol/L [facility] Chloride 98 98 - 110 mmol/L [facility] CO2 30 20 - 32 mmol/L [facility] Calcium 9.3 8.6 - 10.3 mg/dL [facility] Protein Total 6.4 6.1 - 8.1 g/dL [facility] Albumin 4.5 3.6 - 5.1 g/dL [facility] Globulin Total 1.9 1.9 - 3.7 g/dL (calc) [facility] Albumin/Globulin Ratio 2.4 1.0 - 2.5 (calc) [facility] Bilirubin Total 0.7 0.2 - 1.2 mg/dL [facility] Alkaline Phosphatase 81 35 - 144 U/L [facility] AST 19 10 - 35 U/L [facility] ALT 19 9 - 46 U/L [facility] Comment: Test Performed at: [facility] [address] [address] MIKKI HARRIS MD Blood BLOOD SPECIMEN / Unknown 01/28/2024 6:15 AM FEATHER SEPARATOR 01/28/2024 6:16 AM FEATHER SEPARATOR Nando Aguirre MD LAB - CHEMISTRY ORDE MIGUEL ANGEL Performing Organization Address City/[facility]/ZIP Co de Phone Number [facility] [address] [place] [address] * HEPATITIS C AB W/RFLX TO HCV RNA QN PCR (01/25/2023 7:24 AM FEATHER SEPARATOR) Hepatitis C Antibody NON-REACTI VE NON-REACT [facility] Comment: HCV antibody was non-reactive. There is no laboratory evidence of HCV infection. In most cases, no further action is required. However, if recent HCV exposure is suspected, a test for HCV RNA (test code 33909) is suggested. For additional information please refer to http://education.[employer]ian/faq/NIU71n7 (This link is being provided for informational/ educational purposes only.) Test Performed at: [facility] [employer] [address] [place] [address] MIKKI HARRIS MD Blood BLOOD SPECIMEN / Unknown 01/25/2023 7:24 AM FEATHER SEPARATOR 01/25/2023 7:25 AM FEATHER SEPARATOR Nando Aguirre MD LAB - CHEMISTRY MARKOS [facility] Organization Address City/State/ZIP Co de Phone Number [facility] [address] [place] [address] from Last 3 Months or Most Recently Relevant to Health Maintenance Care Teams Telecommunications Cable Jointer Relationship Specialty Start Date End Date Thang Castro MD PCP - General 03/28/15
--- OUTSIDE RECORDS SUMMARY | 2024-04-26 08:30 | XMS_ITS | Patient Health Summary ---
Author Organization [facility] Address [address] [place] [address] Care Team Providers Care Delineator Name Role Phone Thang Castro MD Primary Care Provider [phone] Note from [facility],non-owned Affiliates and Associated Physician Practices is amultiple site organization consisting of ambulatory clinics and hospital sitesin [place], [place], [place]. This disclosure is being madepursuant to the Care Everywhere program and may not contain all information available regarding this patient. Last updated 17.[facility] Allergies No known active allergies Medications * Be aware that medications may not be up to date on this document. Alwaysverify current medications with the patient. * atorvastatin (LIPITOR) 10 MG tablet(Started 10/18/2015) Take 1 (one) tablet by mouth DAILY * irbesartan (Avapro) 300 MG tablet(Started 03/09/2022) Take 1 (one) tablet by mouth once daily * buPROPion XL 24hr (Wellbutrin-XL) 150 MG tablet(Started 03/09/2022) Take 1 (one) tablet by mouth every morning * meloxicam (Mobic) 15 MG tablet(Started 03/09/2022) Take 1 (one) tablet by mouth once daily as needed FOR PAIN * Vitamin D3 (Cholecalciferol) 50 MCG (1999 UT) capsule(Started 04/14/2021) Active Problems Problem Noted Date Diagnosed Date Increased abdominal girth 01/19/2024 Tobacco abuse 04/07/2022 Essential (primary) hypertension 06/10/2015 Hereditary hemochromatosis 03/28/2015 Immunizations * INFLUENZA VACCINE(Given 11/27/2020, 12/25/2019) Social History Tobacco Use Types Packs/Day Years [...] Comments Blood Pressure 139/85 03/27/2024 9:38 AM [facility] Pulse 95 03/27/2024 9:38 AM [facility]INT [facility]ER Temperature 36.8 C (98.2 F) 03/27/2024 9:38 AM [facility]ER Respiratory Rate 18 03/27/2024 9:38 AM [facility]ER Oxygen Saturation 94% 03/27/2024 9:38 AM [facility]ER Inhaled Oxygen Concentration - - Weight 90.6 kg (199 lb 12.8 oz) 03/30/2023 9:55 AM [facility] Height 180.3 cm (5' 11 ) 03/30/2023 9:55 AM [facility]ER Body Mass Index 27.87 03/30/2023 9:55 AM [facility]ER Procedures * HEMOGLOBIN - POCT (IP) APH(Performed 03/27/2024) Performed for Hereditary hemochromatosis (HCC) * US ABDOMEN LIMITED(Performed 01/31/2024) Performed for Hereditary hemochromatosis (HCC), Increased abdominal girth * COMPREHENSIVE METABOLIC PANEL(Performed 01/28/2024) Performed for Hereditary hemochromatosis (HCC), Increased abdominal girth * CBC W AUTO DIFFERENTIAL(Performed 01/28/2024) Performed for Hereditary hemochromatosis (HCC), Increased abdominal girth * HEMOGLOBIN - POCT (IP) APH(Performed 01/17/2024) Performed for Hereditary hemochromatosis (HCC) * PROC PHLEBOTOMY THERAPEUTIC(Performed 12/03/2023) Performed for Hereditary hemochromatosis (HCC) * HEMOGLOBIN - POCT (IP) APH(Performed 11/15/2023) Performed for Hereditary hemochromatosis (HCC) * PROC PHLEBOTOMY THERAPEUTIC(Performed 10/08/2023) Performed for Hereditary hemochromatosis (HCC) * FERRITIN(Performed 09/13/2023) Performed for Hereditary hemochromatosis (HCC) * COMPREHENSIVE METABOLIC PANEL(Performed 09/13/2023) Performed for Hereditary hemochromatosis (HCC) * CBC W AUTO DIFFERENTIAL(Performed 09/13/2023) Performed for Hereditary hemochromatosis (HCC) * HEMOGLOBIN - POCT (IP) APH(Performed 09/13/2023) Performed for Hereditary hemochromatosis (HCC) * HEMOGLOBIN - POCT (IP) APH(Performed 08/16/2023) Performed for Hereditary hemochromatosis (HCC) * PROC PHLEBOTOMY THERAPEUTIC(Performed 08/16/2023) Performed for Hereditary hemochromatosis (HCC) * HEMOGLOBIN - POCT (IP) APH(Performed 07/19/2023) Performed for Hereditary hemochromatosis (HCC) * HEMOGLOBIN - POCT (IP) APH(Performed 06/28/2023) Performed for Hereditary hemochromatosis (HCC) * HGB HCT PANEL(Performed 05/27/2023) Performed for Hereditary hemochromatosis (HCC) * DE LIVER ELASTOGRAPHY(Performed 03/30/2023) Performed for Hereditary hemochromatosis (HCC), Tobacco abuse * HEMOGLOBIN - POCT (IP) APH(Performed 03/24/2023) Performed for Hereditary hemochromatosis (HCC) * PROC PHLEBOTOMY THERAPEUTIC(Performed 03/05/2023) Performed for Hereditary hemochromatosis (HCC), Tobacco abuse * HEPATITIS C AB W/RFLX TO HCV RNA QN PCR(Performed 01/25/2023) Performed for Hereditary hemochromatosis (HCC) * HEPATITIS B SURFACE ANTIGEN W RFLX CONFIRMATION(Performed 01/25/2023) Performed for Hereditary hemochromatosis (HCC) * PT-INR(Performed 01/25/2023) Performed for Hereditary hemochromatosis (HCC) * FERRITIN(Performed 01/25/2023) Performed for Hereditary hemochromatosis (HCC) * COMPREHENSIVE METABOLIC PANEL(Performed 01/25/2023) Performed for Hereditary hemochromatosis (HCC) * CBC W AUTO DIFFERENTIAL(Performed 01/25/2023) Performed for Hereditary hemochromatosis (HCC) * PROC PHLEBOTOMY THERAPEUTIC(Performed 01/08/2023) Performed for Hereditary hemochromatosis (HCC), Tobacco abuse * PROC PHLEBOTOMY THERAPEUTIC(Performed 11/13/2022) Performed for Hereditary hemochromatosis (HCC), Tobacco abuse * HEMOGLOBIN - POCT (IP) APH(Performed 11/09/2022) Performed for Hereditary hemochromatosis (HCC) * PROC PHLEBOTOMY THERAPEUTIC(Performed 09/18/2022) Performed for Hereditary hemochromatosis (HCC), Tobacco abuse * HEMOGLOBIN - POCT (IP) APH(Performed 09/07/2022) Performed for Hereditary hemochromatosis (HCC) * PROC PHLEBOTOMY THERAPEUTIC(Performed 07/24/2022) Performed for Hereditary hemochromatosis (HCC), Tobacco abuse * HEMOGLOBIN - POCT (IP) APH(Performed 07/06/2022) Performed for Hereditary hemochromatosis (HCC) * PROC PHLEBOTOMY THERAPEUTIC(Performed 05/29/2022) Performed for Hereditary hemochromatosis (HCC), Tobacco abuse * PROC PHLEBOTOMY THERAPEUTIC(Performed 05/29/2022) Performed for Hereditary hemochromatosis (HCC) * HEMOGLOBIN - POCT (IP) APH(Performed 05/11/2022) Performed for Hereditary hemochromatosis (HCC) * PROC PHLEBOTOMY THERAPEUTIC(Performed 04/07/2022) Performed for Hereditary hemochromatosis (HCC), Tobacco abuse * URINALYSIS (EXTERNAL RESULT ENTRY)(Performed 03/20/2022) * TSH (EXTERNAL RESULT ENTRY)(Performed 03/20/2022) * LIPID PROFILE (EXTERAL RESULT ENTRY)(Performed 03/20/2022) * IRON/SATURATION (EXTERNAL RESULT ENTRY)(Performed 03/20/2022) * FERRITIN (EXTERNAL RESULT ENTRY)(Performed 03/20/2022) * COMP MET PANEL (EXTERNAL RESULT ENTRY)(Performed 03/20/2022) * CBC W DIFF (EXTERNAL RESULT ENTRY)(Performed 03/20/2022) * HEMOGLOBIN - POCT (IP) APH(Performed 03/16/2022) Performed for Hereditary hemochromatosis (HCC) * PROC PHLEBOTOMY THERAPEUTIC(Performed 03/12/2022) Performed for Hereditary hemochromatosis (HCC) * PROC PHLEBOTOMY THERAPEUTIC(Performed 02/27/2022) Performed for Hereditary hemochromatosis (HCC) * HEMOGLOBIN - POCT (IP) APH(Performed 01/19/2022) Performed for Hereditary hemochromatosis (HCC) * PROC PHLEBOTOMY THERAPEUTIC(Performed 01/02/2022) Performed for Hereditary hemochromatosis (HCC) * HEMOGLOBIN - POCT (IP) APH(Performed 11/24/2021) Performed for Hereditary hemochromatosis (HCC) * PROC PHLEBOTOMY THERAPEUTIC(Performed 11/07/2021) Performed for Hereditary hemochromatosis (HCC) * HEMOGLOBIN - POCT (IP) APH(Performed 09/29/2021) Performed for Hereditary hemochromatosis (HCC) * PROC PHLEBOTOMY THERAPEUTIC(Performed 09/12/2021) Performed for Hereditary hemochromatosis (HCC) * HEMOGLOBIN - POCT (IP) APH(Performed 08/04/2021) Performed for Hereditary hemochromatosis (HCC) * PROC PHLEBOTOMY THERAPEUTIC(Performed 07/18/2021) Performed for Hereditary hemochromatosis (HCC) * HEMOGLOBIN - POCT (IP) APH(Performed 06/02/2021) Performed for Hereditary hemochromatosis (HCC) * PROC PHLEBOTOMY THERAPEUTIC(Performed 05/23/2021) Performed for Hereditary hemochromatosis (HCC) * PROC PHLEBOTOMY THERAPEUTIC(Performed 04/01/2021) Performed for Hereditary hemochromatosis (HCC) * FERRITIN(Performed 03/29/2021) Performed for Hereditary hemochromatosis (HCC) * COMPREHENSIVE METABOLIC PANEL(Performed 03/29/2021) Performed for Hereditary hemochromatosis (HCC) * CBC W AUTO DIFFERENTIAL(Performed 03/29/2021) Performed for Hereditary hemochromatosis (HCC) * PROC PHLEBOTOMY THERAPEUTIC(Performed 03/04/2021) Performed for Hereditary hemochromatosis (HCC) * PROC PHLEBOTOMY THERAPEUTIC(Performed 03/04/2021) Performed for Hereditary hemochromatosis (HCC) * HEMOGLOBIN - POCT (IP) APH(Performed 03/04/2021) Performed for Hereditary hemochromatosis (HCC) * PROC PHLEBOTOMY THERAPEUTIC(Performed 03/04/2021) Performed for Hereditary hemochromatosis (HCC) * PROC PHLEBOTOMY THERAPEUTIC(Performed 02/26/2021) Performed for Hereditary hemochromatosis (HCC) * PROC PHLEBOTOMY THERAPEUTIC(Performed 02/25/2021) Performed for Hereditary hemochromatosis (HCC) * PROC PHLEBOTOMY THERAPEUTIC(Performed 11/26/2020) Performed for Hereditary hemochromatosis (HCC) * FERRITIN(Performed 11/25/2020) Performed for Hereditary hemochromatosis (HCC) * COMPREHENSIVE METABOLIC PANEL(Performed 11/25/2020) Performed for Hereditary hemochromatosis (HCC) * CBC W AUTO DIFFERENTIAL(Performed 11/25/2020) Performed for Hereditary hemochromatosis (HCC) * HEMOGLOBIN - POCT (IP) APH(Performed 11/25/2020) Performed for Hereditary hemochromatosis (HCC) * PROC PHLEBOTOMY THERAPEUTIC(Performed 09/06/2020) Performed for Hereditary hemochromatosis (HCC) * HEMOGLOBIN - POCT (IP) APH(Performed 08/27/2020) Performed for Hereditary hemochromatosis (HCC) * PROC PHLEBOTOMY THERAPEUTIC(Performed 06/14/2020) Performed for Hereditary hemochromatosis (HCC) * HEMOGLOBIN - POCT (IP) APH(Performed 05/28/2020) Performed for Hereditary hemochromatosis (HCC) * PROC PHLEBOTOMY THERAPEUTIC(Performed 03/26/2020) Performed for Hereditary hemochromatosis (HCC) * FERRITIN(Performed 03/23/2020) Performed for Hereditary hemochromatosis (HCC) * CBC W AUTO DIFFERENTIAL(Performed 03/23/2020) Performed for Hereditary hemochromatosis (HCC) * COMPREHENSIVE METABOLIC PANEL(Performed 03/23/2020) Performed for Hereditary hemochromatosis (HCC) * FERRITIN(Performed 07/06/2019) Performed for Hereditary hemochromatosis (HCC) * COMPREHENSIVE METABOLIC PANEL(Performed 07/06/2019) Performed for Hereditary hemochromatosis (HCC) * CBC W AUTO DIFFERENTIAL(Performed 07/06/2019) Performed for Hereditary hemochromatosis (HCC) * CBC W DIFF (EXTERNAL RESULT ENTRY)(Performed 04/28/2019) * COMPREHENSIVE METABOLIC PANEL(Performed 10/25/2018) Performed for Hereditary hemochromatosis (HCC) * CBC W AUTO DIFFERENTIAL(Performed 10/25/2018) Performed for Hereditary hemochromatosis (HCC) * FERRITIN(Performed 10/25/2018) Performed for Hereditary hemochromatosis (HCC) * FERRITIN(Performed 09/03/2018) * CBC W AUTO DIFFERENTIAL(Performed 09/03/2018) * COMPREHENSIVE METABOLIC PANEL(Performed 09/03/2018) * FERRITIN(Performed 06/13/2018) * CBC W AUTO DIFFERENTIAL(Performed 06/13/2018) * COMPREHENSIVE METABOLIC PANEL(Performed 06/13/2018) * FERRITIN(Performed 03/04/2017) * COMPREHENSIVE METABOLIC PANEL(Performed 03/04/2017) * CBC W AUTO DIFFERENTIAL(Performed 03/04/2017) * CBC W AUTO DIFFERENTIAL(Performed 09/03/2016) * FERRITIN(Performed 09/03/2016) * COMPREHENSIVE METABOLIC PANEL(Performed 09/03/2016) * FERRITIN(Performed 06/19/2016) * IRON + TIBC PANEL(Performed 06/19/2016) * VITAMIN D 25-HYDROXY(Performed 12/16/2015) * FERRITIN(Performed 12/16/2015) * COMPREHENSIVE METABOLIC PANEL(Performed 12/16/2015) * IRON BLOOD(Performed 12/16/2015) * LIPID PROFILE(Performed 12/16/2015) * FERRITIN(Performed 09/04/2015) * COMPREHENSIVE METABOLIC PANEL(Performed 09/04/2015) * IRON + TIBC PANEL(Performed 09/04/2015) * CBC W AUTO DIFFERENTIAL(Performed 09/04/2015) * FERRITIN(Performed 05/31/2015) * CBC W AUTO DIFFERENTIAL(Performed 05/31/2015) * COMPREHENSIVE METABOLIC PANEL(Performed 05/31/2015) Results * HEMOGLOBIN - POCT (IP) APH (03/27/2024 9:35 AM [facility]) Only the most recent of22 resultswithin the time period is included. Hemoglobin 15.5 13.5 - 17.5 g/dL [facility] POCT TESTING Blood BLOOD SPECIMEN / Unknown 03/27/2024 9:35 AM [facility] Rebecca Jensen PA-C LAB - POINT [facility] CARE [facility]ABLES [facility] [address] [phone] * US Abdomen Limited (01/31/2024 8:32 AM [facility]) Anatomical Region Laterality Modality Abdomen Ultrasound 01/31/2024 8:32 AM [facility] Impressions 01/31/2024 9:58 AM [facility] IMPRESSION: 1.Diffuse hepatic steatosis without discrete hepatic lesion or intrahepatic biliary dilatation. 2.No evidence of cholelithiasis or acute cholecystitis. 3.The body of the pancreas appears heterogeneous in echotexture is nonspecific but can be seen in acute pancreatitis. Recommend correlation with patient's symptoms and laboratory values. > Dictated by Susan Gore Dr, MD (vice president of contracts). I, Jorden Esparza MD have personally reviewed and interpreted this examination/study. > Interpreting Provider: Jorden Esparza MD on 01/31/2024 9:58 AM Narrative 01/31/2024 9:58 AM [facility] PROCEDURE: US ABDOMEN LIMITED, DATE/TIME OF EXAM: 01/31/2024 8:32 AM, LOCATION [facility] INDICATION: E83.110: Hereditary hemochromatosis (HCC) R19.8: [...] DATE/TIME OF EXAM: 01/31/2024 8:32 AM, LOCATION [facility] INDICATION: E83.110: Hereditary hemochromatosis (HCC) R19.8: [...] > Dictated by Susan Gore Dr, MD (vice president of contracts). I, Jorden Esparza MD have personally reviewed and interpreted this examination/study. > Interpreting Provider: Jorden Esparza MD on 01/31/2024 9:58 AM Nando Aguirre MD US ORDERABLES * (ABNORMAL) CBC WITH DIFFERENTIAL (01/28/2024 6:15 AM [facility]) Only the most recent of14 resultswithin the time period is included. White Blood Cell Count 9.4 3.8 - [...] 1.2 % [facility] Comment: Test Performed at: [employer] [id number] [place] [address] MIKKI HARRIS MD Blood BLOOD SPECIMEN / Unknown 01/28/2024 6:15 AM [facility] 01/28/2024 6:16 AM [facility] Nando Aguirre MD LAB - HEMATOLOGY ORD ERABLES [facility] [address] [place] [address] * (ABNORMAL) COMPREHENSIVE METABOLIC PANEL (01/28/2024 6:15 AM [facility]) Only the most recent of15 resultswithin the time period is included. Glucose 105(H) 65 - 99 mg/dL [facility] [...] [facility] BUN/Creatinine Ratio SEE NOTE: 6 - 22 (calc) [facility] Comment: Not Reported: BUN and [...] 46 U/L [facility] Comment: Test Performed at: [employer] [place] [address] [place] [address] MIKKI HARRIS MD Blood BLOOD SPECIMEN / Unknown 01/28/2024 6:15 AM [facility] 01/28/2024 6:16 AM [facility] Nando Aguirre MD LAB - CHEMISTRY MARKOS MICHELLE [facility] [address] [place] [address] * FERRITIN (09/13/2023 9:51 AM CDT) Only the most recent of15 resultswithin the time period is included. Ferritin 57 22 - 275 ng/mL 09/13/2023 10:49 AM CDT [facility] Blood BLOOD SPECIMEN / Unknown Venipuncture / Unknown 09/13/2023 9:51 AM CDT 09/13/2023 9:58 AM CDT Nando Aguirre MD LAB - CHEMISTRY MARKOS MICHELLE Performing Organization Address [facility]/ZIP Co de Phone Number [address] [address] [phone] * HGB HCT PANEL (05/27/2023 9:37 AM CDT) Hemoglobin 15.1 13.3 - 17.5 g/dL 05/27/2023 9:50 AM CDT [facility] Hematocrit 42.4 38.7 - 51.1 % 05/27/2023 9:50 AM CDT [facility] Blood BLOOD SPECIMEN / Unknown Venipuncture / Unknown 05/27/2023 9:37 AM CDT 05/27/2023 9:45 AM CDT Nanod Aguirre MD LAB - HEMATOLOGY SEBASTIEN ARCHIBALD [address] [address] [phone] * DE LIVER ELASTOGRAPHY (03/30/2023 10:31 AM [facility]) Narrative Yaw Parisi MD - 03/30/2023 10:31 AM [facility] Yaw Parisi MD 04/01/2023 1:26 PM Diagnosis: Hereditary hemochromatosis RN verified patient is NPO for prior 3 hours. Procedure explained. Date of Exam: 03/30/2023 Liver Stiffness: (LSM, kPa) median: 6.8 IQR/Median% (ideally < 30%): 7% CAP (controlled attenuation parameter): 287 Technical Difficulty: None Ordering Provider: Dr. Nando Aguirre MD Phone Fax Fibroscan interpretation: I have personally reviewed the Fibroscan report and associated tracings. The calculated Liver Stiffness Measurement (LSM, kPa) indicates that: The probability of advanced liver fibrosis is: low. The loss of ultrasound signal, (controlled attenuation parameter, CAP [dB/m]), indicates that the probability of hepatic steatosis is: high. Yaw Rider MD The following criteria are used to indicate the probability of advanced (stage 3-4) fibrosis: < 7.0 kPa: low 7.0-8.9 kPa: low to moderate 9.0-14.9 kPa: moderate 15-20 kPa: high > 20 kPa: very high Liver stiffness > 20 kPa is also associated with a high probability of complications of portal hypertension including varices and ascites. Liver stiffness > 50 kPa is associated with a high risk of variceal bleeding. These interpretations are based on the following published data: Elham PJ, Susana M, Sarai M, et al. Accuracy of FibroScan controlled attenuation parameter and liver stiffness measurement in assessing steatosis and fibrosis in patients with nonalcoholic fatty liver disease. Gastroenterology 2019;156:6640-4065. Lisa MS, uSellen R, Van Buffy ML, et al. Vibration-controlled transient elastography to assess fibrosis and steatosis in patients with nonalcoholic fatty liver disease. Clin Gastroenterol Hepatol 2019;17:156-163. Note that scores have been developed that incorporate the Fibroscan liver stiffness measurement from large cohorts of patients with liver biopsies to further refine the ability of Fibroscan to identify patients with MASH and advanced fibrosis. These include the FAST (Fibroscan-AST) score (Feng, 202) and the Agile3+ and Agile4 scores (Calvin, 202). Feng TA, Krishna Baer ML, Landen M, Theo A, et al. Validation of the accuracy of the FAST score for detecting patients with at-risk nonalcoholic steatohepatitis (MANCIA) in a [place] cohort and comparison to other non-invasive algorithms. PLoS ONE (2021) 17: [id number]. Calvin AJ, Toñito J, Elli ZM, et al. Enhanced diagnosis of advanced fibrosis and cirrhosis in individuals with NAFLD using FibroScan-based Agile scores. J Hepatol (2022) 78: 247-259. Fibroscan LSM can also be used with laboratory parameters without formulas to assess prognosis. According to the Baveno-VII criteria (Fitch, 202), Fibroscan LSM ?15 kPa plus a platelet count of ?[id number]/L rules out clinically significant portal hypertension (sensitivity and negative predictive value >90%) in patients with compensated advanced chronic liver disease. Fitch R, David J, Evy G, Nadia T, Osvaldo C on behalf of the Baveno VII Faculty. Baveno VII--Renewing consensus in portal hypertension. J Hepatol (2021) 76: 959-974 Assessing the likelihood of advanced fibrosis in patients with intermediate liver stiffness measurement (LSM) by Fibroscan (e.g., 8-15 kPa) can be improved by also calculating the FIB-4 score (Meetyduke et al. Hepatology Communications 2019;3:2341-7193) or NAFLD Fibrosis score (Concepcion et al. Clinical Gastroenterology and Hepatology 2019;17:3002-3355 using routine clinical data. Note: 1. Fibroscan cannot reliably identify earlier stages of fibrosis (ie distinguish F0 from F1 and F2) and thus a histologic stage cannot be predicted from the Fibroscan reading. 2. Liver stiffness can be increased by factors other than fibrosis including passive congestion, infiltrative processes, active alcoholism, recent moderate alcohol consumption in the 2 weeks before the exam, biliary obstruction and marked inflammation. The interpretation of the Fibroscan result provided above may not have taken such clinical factors into account. Disease etiology also influences Fibroscan cutoff values for fibrosis stages and the following cutoffs have been proposed (Devin et al, Clin Gastro Hepatol 2015; 13:27-36): Cutoffs for Stage 3 and Stage 4 fibrosis respectively: Hepatitis B: >9 and >11.7 kPa Hepatitis C: >9.5 and >12.5 kPa HCV-HIV: >11 and >14 kPa Cholestatic liver diseases: >10 and >17.9 kPa MASLD/MASH: >10 and >14 kPa CAP estimates of steatosis: normal <200 dB/m mild 200 to 250 dB/m moderate 250-290 dB/m substantial > 290 dB/m (Note that Fibroscan is not a quantitative measure of liver fat.) These criteria are estimates and may change as additional supporting data becomes available. (This additional interpretive data was last updated 07/04/22.) [email or web address] Nando Aguirre MD PROCEDURE/MINOR SURG ICAL ORDERABLES * HEPATITIS C AB W/RFLX TO HCV RNA QN PCR (01/25/2023 7:24 AM [facility]ER) Pathologist [facility] Hepatitis C Antibody NON-REACTI VE NON-REACT MARLEN [facility] Comment: HCV antibody was non-reactive. There is no laboratory evidence of HCV infection. In most cases, no further action is required. However, if recent HCV exposure is suspected, a test for HCV RNA (test code 65884) is suggested. For additional information please refer to http://education.[employer]/faq/VTI98a2 (This link is being provided for informational/ educational purposes only.) Test Performed at: [employer] [id number] [place] [address] MIKKI HARRIS MD Blood BLOOD SPECIMEN / Unknown 01/25/2023 7:24 AM [facility]ER 01/25/2023 7:25 AM [facility]ER Nando Aguirre MD LAB - CHEMISTRY MARKOS MICHELLE [facility] Organization Address City/State/ZIP Co de Phone Number [facility] [address] [place] [address] * PT-INR (01/25/2023 7:24 AM JOINT [facility]ARNER) Pathologist [facility] INR 1.0 [facility] Comment: Reference Range 0.9-1.1 Moderate-intensity Warfarin Therapy 2.0-3.0 Higher-intensity Warfarin Therapy 3.0-4.0 PT 10.3 9.0 - 11.5 sec [facility] Comment: For additional information, please refer to http://[employer]/faq/ILV472 (This link is being provided for informational/ educational purposes only.) Test Performed at: [facility] [address] MIKKI HARRIS MD Blood BLOOD SPECIMEN / Unknown 01/25/2023 7:24 AM [facility]INT [facility]ER 01/25/2023 7:25 AM [facility]ER Nando Aguirre MD LAB - COAGULATION OR DERABLES Performing Organization Address [facility] Co de Phone Number [address] [address] * HEPATITIS B SURFACE ANTIGEN W RFLX CONFIRMATION (01/25/2023 7:24 AM JOINT [facility]ARNER) [facility] Hepatitis B Virus Surface Antigen NON-REACT MARLEN NON-REACT MARLEN [facility] Comment: For additional information, please refer to http://Drill Map.[employer]/faq/BFO078 (This link is being provided for informational/ educational purposes only.) Test Performed at: [employer] [address] [place] [address] MIKKI HARRIS MD Confirmation [facility] Comment: Test Performed at: [employer] [id number] [place] [address] MIKKI HARRIS MD Blood BLOOD SPECIMEN / Unknown 01/25/2023 7:24 AM [facility]ER 01/25/2023 7:25 AM [facility] Nando Aguirre MD LAB - CHEMISTRY ORDE RABLES Performing Organization Address [facility]/ZIP Co de Phone Number [address] [address] * CBC W DIFF (EXTERNAL RESULT ENTRY) (03/20/2022 6:41 AM JOINT [facility]ER) Only the most recent of2 resultswithin the time period is included. WBC (EXTERNAL RESULT) 6.2 10^3/ul [facility] Hemoglobin (EXTERNAL RESULT) 15.6 g/dl [facility] Hematocrit (EXTERNAL RESULT) 43.5 % [facility] Platelets (EXTERNAL RESULT) 251 10^3/ul [facility] Neutrophil Absolute (EXTERNAL RESULT) 2,802 10^3/ul [facility] Blood BLOOD SPECIMEN / Unknown 03/20/2022 6:41 AM [facility]ER Historical Provider LAB - HEMATOLOGY ORDERABLES Performing Organization Address [facility] de Phone Number [facility] [address] [place] [phone] * (ABNORMAL) URINALYSIS (EXTERNAL RESULT ENTRY) (03/20/2022 6:41 AM JOINT YARNER) Pathologist [facility] pH UA (EXTERNAL RESULT) 6.5 [facility] Specific [place] Urine (EXTERNAL RESULT) 1.019 [facility] Protein UA (EXTERNAL RESULT) TRACE(A) [facility] Blood UA (EXTERNAL RESULT) NEG [facility] Nitrite UA (EXTERNAL RESULT) NEG [facility] RBC UA (EXTERNAL RESULT) NONE /HPF [facility] WBC UA (EXTERNAL RESULT) NONE /HPF [facility] Leukocyte Esterase (EXTERNAL RESULT) NEG [facility] Bacteria UA (EXTERNAL RESULT) NONE [facility] Urine URINE / Unknown 03/20/2022 6 :41 AM [facility] Historical Provider LAB - CHEMISTRY O RDERABLES Performing Organization Address [facility] de Phone Number [facility] [address] [place] [address] * FERRITIN (EXTERNAL RESULT ENTRY) (03/20/2022 6:41 AM JOINT YARNER) Pathologist [facility] Ferritin (EXTERNAL RESULT) 161 [facility] Blood BLOOD SPECIMEN / Unknown 03/20/2022 6:41 AM JOINT YARNER Historical Provider LAB - CHEMISTRY O RDERABLES Performing Organization Address [facility] de Phone Number [facility] [address] [place] [address] * (ABNORMAL) IRON/SATURATION (EXTERNAL RESULT ENTRY) (03/20/2022 6:41 AM JOINT YARNER) Pathologist [facility] Iron (EXTERNAL RESULT) 218(A) mcg/dl [facility] Transferrin (EXTERNAL RESULT) [facility] Transferrin Saturation (EXTERNAL RESULT) 67(A) % [facility] Blood BLOOD SPECIMEN / Unknown 03/20/2022 6:41 AM JOINT YARNER Historical Provider LAB - CHEMISTRY O ERIC Performing Organization Address [facility] de Phone Number [facility] [address] [place] [address] * (ABNORMAL) COMP MET PANEL (EXTERNAL RESULT ENTRY) (03/20/2022 6:41 AM JOINT YARNER) Glucose (EXTERNAL) 102(A) mg/dL [facility] Sodium (EXTERNAL RESULT) 138 mmol/L [facility] Potassium (EXTERNAL RESULT) 5.2 mmol/L [facility] Chloride (EXTERNAL RESULT) 100 mmol/L [facility] CO2 (EXTERNAL) 30 mmol/L [facility] Calcium (EXTERNAL RESULT) 9.2 mg/dL [facility] Anion Gap (EXTERNAL RESULT) [facility] BUN (EXTERNAL RESULT) 19 mg/dL [facility] Creatinine (EXTERNAL RESULT) 1.01 mg/dl [facility] Alkaline Phosphatase (EXTERNAL RESULT) 64 U/L [facility] ALT (EXTERNAL RESULT) 17 U/L [facility] AST (EXTERNAL RESULT) 19 U/L [facility] Protein Total (EXTERNAL RESULT) 6.6 gm/dL [facility] Albumin (EXTERNAL RESULT) 4.7 gm/dL [facility] Bilirubin Total (EXTERNAL RESULT) 0.4 mg/dL [facility] eGFR MDRD (EXTERNAL RESULT) 86 mL/min/1.7 3m2 [facility] eGFR (EXTERNAL) [facility] Blood BLOOD SPECIMEN / Unknown 03/20/2022 6:41 AM JOINT YARNER Historical Provider LAB - CHEMISTRY O ERIC Performing Organization Address [facility] de Phone Number [facility] [address] [place] [address] * LIPID PROFILE (EXTERAL RESULT ENTRY) (03/20/2022 6:41 AM JOINT YARNER) Cholesterol (EXTERNAL RESULT) 167 mg/dL [facility] Triglycerides (EXTERNAL RESULT) 81 mg/dL [facility] HDL (EXTERNAL RESULT) 67 mg/dL [facility] LDL (EXTERNAL RESULT) 83 mg/dL [facility] VLDL (EXTERNAL RESULT) [facility] Chol HDL Ratio (External Result) 2.5 [facility] Blood BLOOD SPECIMEN / Unknown 03/20/2022 6:41 AM JOINT YARNER Historical Provider LAB - CHEMISTRY Ganesh REYES Performing Organization Address [facility] de Phone Number [facility] [address] [place] [address] * TSH (EXTERNAL RESULT ENTRY) (03/20/2022 6:41 AM JOINT YARNER) TSH (EXTERNAL RESULT) 1.25 uIU/mL [facility] Blood BLOOD SPECIMEN / Unknown 03/20/2022 6:41 AM JOINT YARNER Historical Provider LAB - CHEMISTRY Ganesh REYES Performing Organization Address [facility] de Phone Number [facility] [address] [place] [address] * (ABNORMAL) IRON + TIBC PANEL (06/19/2016 1:40 PM CDT) Only the most recent of2 resultswithin the time period is included. Iron 229(H) 50 - 180 mcg/dL [facility] ([facility]) TIBC 309 250 - 425 mcg/dL (calc) [facility] ([facility]) Iron Saturation 74(H) 15 - 60 % (calc) [facility] ([facility]) Comment: Test Performed at: [employer] [facility] [id number] [place] [address] JESSI WELLS DO,MPH 06/19/2016 1:40 PM CDT 06/19/2016 1:41 PM CDT Dane Grijalva MD LAB - CHEMISTRY MARKOS MICHELLE Performing Organization Address [facility] de Phone Number [facility] ([facility]) * (ABNORMAL) VITAMIN D 25-HYDROXY (12/16/2015 8:50 AM CDT) Vitamin D, 25 Hydroxy Total 27(L) 30 - 100 ng/mL [facility] ([facility]) Comment: Vitamin D Status 25-OH Vitamin D: Deficiency: <20 ng/mL Insufficiency: 20 - 29 ng/mL Optimal: > or = 30 ng/mL For 25-OH Vitamin D testing on patients on D2-supplementation and patients for whom quantitation of D2 and D3 fractions is required, the QuestAssureD() 25-OH VIT D, (D2,D3), LC/MS/MS is recommended: order code 58936 (patients >2yrs). For more information on this test, go to: http://education.[employer]/faq/VHX166 (This link is being provided for informational/educational purposes only.) REPORT COMMENT: FASTING:YES Test Performed at: [employer] [id number] [place] [address] JESSI WELLS DO,MPH 12/16/2015 8:50 AM CDT 12/16/2015 8:50 AM CDT Thang Castro MD LAB - CHEMISTRY MARKOS MICHELLE Performing Organization Address [facility] Co de Phone Number [facility] ([facility]) * (ABNORMAL) IRON BLOOD (12/16/2015 8:50 AM CDT) Iron 309(H) 50 - 180 mcg/dL [facility] ([facility]) Comment: Test Performed at: [employer] [facility] [place] [address] JESSI WELLS DO,MPH 12/16/2015 8:50 AM CDT 12/16/2015 8:50 AM CDT Thang Castro MD LAB - CHEMISTRY MARKOS MICHELLE Performing Organization Address [facility]/ZIP Co de Phone Number [facility] ([facility]) * (ABNORMAL) LIPID PROFILE (12/16/2015 8:50 AM CDT) Cholesterol Total 208(H) 125 - 200 mg/dL [facility] ([facility]) HDL 61 > OR = 40 mg/dL [facility] ([facility]) Triglycerides 123 <150 mg/dL [facility] ([facility]) LDL Calculated 122 <130 mg/dL (calc) [facility] ([facility]) Comment: Desirable range <100 mg/dL for patients with CHD or diabetes and <70 mg/dL for diabetic patients with known heart disease. Chol/HDL Ratio 3.4 < OR = 5.0 (calc) [facility] ([facility]) Non HDL Cholesterol 147 mg/dL (calc) [facility] ([facility]) Comment: Target for non-HDL cholesterol is 30 mg/dL higher than LDL cholesterol target. Test Performed at: [employer] [address] [place] [address] JESSI WELLS DO,MPH 12/16/2015 8:50 AM CDT 12/16/2015 8:50 AM CDT Thang Castro MD LAB - CHEMISTRY MARKOS MICHELLE [facility] Organization Address City/State/ZIP Co de Phone Number [facility]) Care Teams Delineator Relationship Specialty Start Date End Date Thang Castro MD PCP - General 03/28/15
--- OUTSIDE RECORDS SUMMARY | 2024-04-26 08:30 | XMS_ITS | Continuity of Care Document ---
Author Organization [facility] Address [address] [facility] [address] [place] [address] Phone Care Team Providers Care Life Insurance Actuary Name Role Phone Gibsonbashirradha Terell Unavailable Unavailable Procedures Procedure Date Eye Exam, New Patient Advance Directives Directive Yes / No Effective Date File Name No Information Encounters Encounter Description Practice Location Reason(s) For Visit Diagnoses Date Provider Providers Copied on Encounter [facility], [address], [place], [place], [id number], [place] tel:[phone] [facility] No Information 3[address] Mandy Terell. [address] [facility] [address], [address], [place]. tel:[phone] Referring Provider: Thang Castro MD, [address] [place] [address], [address]. tel:[phone] Family History Family Member Type Diagnosis Age At Onset No Information Payers Payer name Insurance type Covered alliance party ID Authoriza tion(s) [facility] Out Of State [id number] Social History Type Description Quantity Date Captured Comments Sex Male Smoking Status No Information Chief Complaint And Reason For Visit No Information Reason For Referral Reason For Referral No Information History Of Present Illness Encounter Date Complaint History Of Prese nt Illness No Information Functional Status Date Functional Assessmen t No Information Instructions Date Instruction Additional Infor mation No Information Assessments Type Assessment Date No Information Patient Care Teams Name Effective Dates (start - stop) Status Members No Information
--- OUTSIDE RECORDS SUMMARY | 2024-04-26 08:30 | XMS_ITS | Referral Summary ---
Author Organization [facility] Address [address] [facility] [address] Care Team Providers Care Board Certified Arts Therapist Name Role Phone Thang Castro MD Primary Care Provider [phone] Source Comments [facility],non-owned Affiliates and Associated Physician Practices is amultiple site organization consisting of ambulatory clinics and hospital sitesin [place], [place], [place] and [place]. This disclosure is being madepursuant to the Care Everywhere program and may not contain all information available regarding this patient. Last updated 17.[facility] Encounters Date Type Department Care Team Description 03/27/2024 Travel 03/27/2024 9:30 AM [facility]ST - 03/27/2024 11:59 PM [facility]NALYST Hospital Encounter [facility] [address] [place] [address] Discharge Disposition: Home or Self Care 02/08/2024 Telephone [facility] [address] [facility], [place] [address] Kate Pham RN General ( abd & Labs) 01/31/2024 Travel 01/31/2024 7:15 AM [facility]ST - 01/31/2024 11:59 PM [facility] Hospital Encounter [facility] [address] [place] [address] Nando Aguirre MD Discharge Disposition: Home or Self Care from Last 3 Months Allergies No known active allergies Medications * [...] 03/30/23 Fibroscan CAP 287, LSM 6.8 kPa Immunizations Name Administration Dates Next Due INFLUENZA VACCINE 11/27/2020,12/25/2019 Social History Tobacco Use Types Packs/Day Years [...] Comments Blood Pressure 139/85 03/27/2024 9:38 AM [facility]NA[facility]ST Pulse 95 03/27/2024 9:38 AM [facility] ANALYST Temperature 36.8 C (98.2 F) 03/27/2024 9:38 AM [facility] ANALYST Respiratory Rate 18 03/27/2024 9:38 AM [facility] ANALYST Oxygen Saturation 94% 03/27/2024 9:38 AM [facility] ANALYST Inhaled Oxygen Concentration - - Weight 90.6 kg (199 lb 12.8 oz) 03/30/2023 9:55 AM [facility] ANALYST Height 180.3 cm (5' 11 ) 03/30/2023 9:55 AM [facility] ANALYST Body Mass Index 27.87 03/30/2023 9:55 AM [facility] ANALYST Plan of Treatment Upcoming Encounters Date Type Department Care Team (Late st Contact Info) Description 05/22/2024 9:30 AM CDT Appointment [facility] [address] [place] [address] 06/06/2024 1:30 PM CDT Office Visit [facility] [address] [facility] [place] [address] Nando Aguirre MD [address] [place] [address] [address] [place] [address] Goals Goal Patient Goal Type Associated Problems Recent Progress Patient-Stated? Author Medication Management General On track( 10:01 AM [facility] ANALYST) No Yee Garcia, RN Note: Expected end date: Ongoing Interventions: Take all medications as prescribed Let your doctor know right away about any changes in your medications Make sure to request a refill of your medication at least one week prior to your last dose Safety General On track( 10:01 AM [facility] ANALYST) No Denise Sanchez, ANGELA Note: Expected end [...] POCT (IP) [facility] Routine 03/27/2024 9:35 AM [facility] ANALYST Hereditary hemochromatosis (HCC) US ABDOMEN LIMITED Routine 01/31/2024 8: 32 AM [facility] ANA[facility]ST Hereditary hemochromatosis (HCC) Increased abdominal girth COMPREHENSIVE METABOLIC PANEL Routine 01/28/2024 6:15 AM [facility] ANA[facility]ST Hereditary hemochromatosis (HCC) Increased abdominal girth CBC W AUTO DIFFERENTIAL Routine 01/28/2024 6:15 AM [facility] ANALYST Hereditary hemochromatosis (HCC) Increased abdominal girth HEPATITIS C AB W/RFLX TO HCV RNA QN PCR Routine 01/25/2023 7:24 AM [facility] ANALYST Hereditary hemochromatosis (HCC) from Last 3 Months or Most Recently Relevant to Health Maintenance Results * HEMOGLOBIN - POCT (IP) [facility] (03/27/2024 9:35 AM SEC[facility] ANALYST) Hemoglobin 15.5 13.5 - 17.5 g/dL [facility] Blood BLOOD SPECIMEN / Unknown 03/27/2024 9:35 AM SEC[facility]PERATIONS [facility] ANALYST Rebecca Jensen PA-C LAB - POINT OF CARE ORDERABLES Performing Organization Address City/State/[facility] Co de Phone Number [facility] [address] [phone] * US Abdomen Limited (01/31/2024 8:32 AM [facility] ANALYST) Anatomical Region Laterality Modality Abdomen Ultrasound 01/31/2024 8:32 AM [facility] ANALYST Impressions 01/31/2024 9:58 AM [facility] ANALYST IMPRESSION: 1.Diffuse hepatic steatosis without discrete hepatic lesion or intrahepatic biliary dilatation. 2.No evidence of cholelithiasis or acute cholecystitis. 3.The body of the pancreas appears heterogeneous in echotexture is nonspecific but can be seen in acute pancreatitis. Recommend correlation with patient's symptoms and laboratory values. > Dictated by Susan Gore Dr, MD (radiology nurse). I, Jorden Esparza MD have personally reviewed and interpreted this examination/study. > Interpreting Provider: Jorden Esparza MD on 01/31/2024 9:58 AM Narrative 01/31/2024 9:58 AM [facility] ANALYST PROCEDURE: US ABDOMEN LIMITED, DATE/TIME OF EXAM: 01/31/2024 8:32 AM, LOCATION [facility] INDICATION: E83.110: Hereditary hemochromatosis (HCC) R19.8: Increased [...] DATE/TIME OF EXAM: 01/31/2024 8:32 AM, LOCATION [facility] INDICATION: E83.110: Hereditary hemochromatosis (HCC) R19.8: Increased [...] > Dictated by Susan Gore Dr, MD (radiology nurse). I, Jorden Esparza MD have personally reviewed and interpreted this examination/study. > Interpreting Provider: Jorden Esparza MD on 01/31/2024 9:58 AM Nando Aguirre MD US ORDERABLES * (ABNORMAL) CBC WITH DIFFERENTIAL (01/28/2024 6:15 AM SEC[facility] ANALYST) White Blood Cell Count 9.4 3.8 - [...] 1.2 % [facility] Comment: Test Performed at: [employer] [address] [place] [address] MIKKI HARRIS MD Blood BLOOD SPECIMEN / Unknown 01/28/2024 6:15 AM [facility] ANALYST 01/28/2024 6:16 AM [facility] ANALYST Nando Aguirre MD LAB - HEMATOLOGY ORD DRAGAN Performing Organization Address City/State/ZIP Co oh Phone Number [facility] [address] [place] [address] * (ABNORMAL) COMPREHENSIVE METABOLIC PANEL (01/28/2024 6:15 AM SEC[facility] ANALYST) Glucose 105(H) 65 - 99 mg/dL [facility] [...] 46 U/L [facility] Comment: Test Performed at: [employer] [address] [place] [address] MIKKI HARRIS MD Blood BLOOD SPECIMEN / Unknown 01/28/2024 6:15 AM [facility] ANALYST 01/28/2024 6:16 AM [facility] ANALYST Nando Aguirre MD LAB - CHEMISTRY MARKOS MICHELLE [facility] [address] [place] [address] * HEPATITIS C AB W/RFLX TO HCV RNA QN PCR (01/25/2023 7:24 AM [facility] ANALYST) Hepatitis C Antibody NON-REACTI VE NON-REACT MARLEN [facility] Comment: HCV antibody was non-reactive. There is no laboratory evidence of HCV infection. In most cases, no further action is required. However, if recent HCV exposure is suspected, a test for HCV RNA (test code 70448) is suggested. For additional information please refer to http://education.[employer]/faq/YFD77q4 (This link is being provided for informational/ educational purposes only.) Test Performed at: [employer] [address] [place] [address] MIKKI HARRIS MD Blood BLOOD SPECIMEN / Unknown 01/25/2023 7:24 AM [facility] ANALYST 01/25/2023 7:25 AM [facility] ANALYST Nando Aguirre MD LAB - CHEMISTRY MARKOS MICHELLE Performing Organization Address [facility] Co de Phone Number [facility] [address] [place] [address] from Last 3 Months or Most Recently Relevant to Health Maintenance Care Teams Board Certified Arts Therapist Relationship Specialty Start Date End Date Thang Castro MD PCP - General 03/28/15
--- OUTSIDE RECORDS SUMMARY | 2024-04-26 08:30 | XMS_ITS | Clinical Summary ---
Author Organization [facility] Address [address] [address] Phone Care Team Providers Care Client Care Specialist Name Role Phone Unavailable Primary Care Provider Unavailabl e Social History Tobacco Use Types Packs/Day Years Used Date Smoking Tobacco: Never Assessed Sex and Gender Information Value Date Recorded Sex Assigned at Not on file Legal Sex Male 10:38 PM CDT Gender Identity Not on file Sexual Orientation Not on file Plan of Treatment Health Maintenance Due Date Last Done Comments Hepatitis C Virus (HCV) Screening 1960 TdaP Immunization 1960 Colonoscopy 11/22/2007 Colorectal Cancer Screening 11/22/2007 Cologuard 2012 Immunochemical Fecal Occult Blood 2012 Pneumococcal Immunization (5 0+ years) (1 of 1 - PCV) 2012 Zoster Immunization (1 of 2) 2012 PSA Discussion 2017 Influenza Immunization (#1) 2023 SARS-COV-2 Immunization ( - 2023- season) 2023 Respiratory Syncytial Virus (RSV) Immunization (Adult) (1 - 1-dose 75+ series) 2037 Hepatitis B Immunization Aged Out No longer eligible based on patient's age to complete this topic Meningococcal Immunization (ACWY) Aged Out No longer eligible based on patient's age to complete this topic Pneumococcal Immunization Combined Aged Out No longer eligible based on patient's age to complete this topic Rotavirus Immunization Aged Out No lo nger eligible based on patient's age to complete this topic Insurance [facility]
== END 2024-04-26 08:17 | disposition home or self-care (01) ==
PROVIDERS: PCP Family Medicine; Visit Provider Otolaryngology Otolaryngology/Facial Plastic Surgery
DX: R13.10 Dysphagia, unspecified (principal)
CPT/HCPCS: 74220

== ENCOUNTER 2024-07-07 00:33 | Day surgery (SDC) | payer BC, SELFPAY ==
--- NOTE | 2024-04-10 09:29 | SUR.PREOP ---
0929 Called pt to reschedule his procedure due to the provider being unavailable that day. Message left requesting a return call.
[2024-06-26 12:51] VITALS: BMI 29.9
--- OUTSIDE RECORDS SUMMARY | 2024-07-07 00:36 | XMS_ITS | Clinical Summary ---
Author Organization [facility] Address [address] [address] Phone Care Team Providers Care Linen Supervisor Name Role Phone Unavailable Primary Care Provider [...] patient's age to complete this topic Insurance [facility]
--- OUTSIDE RECORDS SUMMARY | 2024-07-07 00:36 | XMS_ITS | Continuity of Care Document ---
Author Organization [facility] Address [address] [facility] [address] [place] [address] Phone Care Team Providers Care Technical Assistant Name Role Phone Gibsonbashirradha Terell Unavailable Unavailable Procedures Procedure Date Eye Exam, New Patient Advance Directives Directive Yes / No Effective Date File Name No Information Encounters Encounter Description Practice Location Reason(s) For Visit Diagnoses Date Provider Providers Copied on Encounter [facility], [address], [place], [place], [id number], [place] tel:[phone] [facility] No Information 3[address] Mandy Terell. [address] [facility] [address], [place], [address], [place]. tel:[phone] Referring Provider: Thang Castro MD, [address] [place] [address], [address]. tel:[phone] Family History Family Member Type Diagnosis Age At Onset No Information Payers Payer name Insurance type Covered libertarian ID Authoriza tion(s) [facility] Out Of State [id number] Social History Type Description Quantity Date Captured [...]
--- OUTSIDE RECORDS SUMMARY | 2024-07-07 00:36 | XMS_ITS | Clinical Summary ---
Author Organization [facility] Address [address] [place] [address] Care Team Providers Care Instrument Inspector Name Role Phone Thang Castro MD Primary Care Provider [phone] Source Comments [facility],non-owned Affiliates and Associated Physician Practices is amultiple site organization consisting of ambulatory clinics and hospital sitesin [place], [place], [place] and [place]. This disclosure is being madepursuant to the Care Everywhere program and may not contain all information available regarding this patient. Last updated 17.[facility] Allergies No known active allergies Medications * Be aware that medications may not be up to date on this document. Alwaysverify current medications with the patient. atorvastatin (LIPITOR) 10 MG tablet Take 1 (one) tablet by mouth DAILY 10/18/2015 Active irbesartan (Avapro) 300 MG tablet Take 1 (one) tablet by mouth once daily 03/09/2022 Active Vitamin D3 (Cholecalciferol ) 50 MCG (1999 UT) capsule 04/14/2021 Active Trelegy Ellipta 200-62.5-25 MCG/ACT inhaler Inhale 1 (one) puff by mouth once daily 10/27/2023 Active Active Problems Problem Noted Date Diagnosed Date Increased abdominal girth 01/19/2024 Tobacco abuse 04/07/2022 Essential (primary) hypertension 06/10/2015 Hereditary hemochromatosis 03/28/2015 Overview (04/01/2023): 03/30/23 Fibroscan CAP 287, LSM 6.8 kPa Encounters Date Type Department Care Team Description 06/22/2024 Travel 06/06/2024 1:30 PM CDT Office Visit [facility] [address], [place] [address] Nando Aguirre MD Hereditary hemochromatosis (Primary Dx); Tobacco abuse 06/06/2024 Travel 05/29/2024 9:27 AM CDT - 05/29/2024 11:59 PM CDT Hospital Encounter [facility] [address] [place] [address] Thang Castro MD Discharge Disposition: Home or Self Care 05/29/2024 Travel 05/22/2024 Travel 05/19/2024 Orders Only [facility] [address], [place] [address] Denise Sanchez, ANGELA Hereditary hemochromatosis 05/19/2024 Orders Only [facility] [address], [place] [address] Denise Sanchez, ANGELA Hereditary hemochromatosis 05/19/2024 Orders Only [facility] [address], [place] [address] Denise Sanchez, RN from Last 3 Months Immunizations Immunization Administration Dates Next Due INFLUENZA VACCINE 11/27/2020,12/25/2019 [...] at Not on file Legal Sex Male 5:34 [address] [address] [address] Gender Identity Male 07/23/2023 1:45 PM CDT Sexual Orientation Not on file Last Filed Vital Signs Vital Sign Reading Time Taken Comments Blood Pressure 160/84 06/06/2024 2:03 PM CDT Pulse 77 06/06/2024 2:03 PM CDT Temperature 37.4 C (99.4 F) 06/06/2024 2:03 PM CDT Respiratory Rate 18 05/29/2024 9:31 AM CDT Oxygen Saturation 98% 06/06/2024 2:03 PM CDT Inhaled Oxygen Concentration - - Weight 97.5 kg (215 lb) 06/06/2024 2:03 PM CDT Height 180.3 cm (5' 11 ) 06/06/2024 2:03 PM CDT Body Mass Index 29.99 06/06/2024 2:03 PM CDT Plan of Treatment Upcoming Encounters Date Type Department Care Team (Late st Contact Info) Description 07/31/2024 9:30 AM CDT Appointment [facility] [address] [place] [address] 06/08/2025 9:00 AM CDT Office Visit [facility] [address], [place] [address] Nando Aguirre MD [address] [place] [address] [place] [address] Health Maintenance Due Date Last Done Comments [...] VACCINE (1 of 2) 2012 COVID-19 VACCINE (4 - season) 2023 02/05/2021, 05/20/2020, 04/18/2020 DEPRESSION SCREENING 03/01/2024 INFLUENZA VACCINE (Season Ended) 2024 12/26/2022, 12/26/2020, 11/27/2020, Additional history exists SCREENING FOR DIABETES 01/27/2027 , 09/13/2023, 01/25/2023, Additional history exists Respiratory Syncytial [...] complete this topic MENINGOCOCCAL (Group B) VACCINE SHARED DECISION-MAKING Aged Out No longer eligible based on patient's age to complete this topic MENINGOCOCCAL GROUPS A/C/Y/W VACCINE Aged Out No longer eligible based on patient's age to complete this topic Goals Goal Patient Goal Type Associated Problems Recent Progress Patient-Stated? Author Medication Management General On track( 10:01 AM [facility]) No Yee Garcia, RN Note: Expected end date: Ongoing Interventions: Take all medications as prescribed Let your doctor know right away about any changes in your medications Make sure to request a refill of your medication at least one week prior to your last dose Safety General On track( 024 10:01 AM [facility]) No Denise Sanchez, ANGELA Note: Expected end date: onging Interventions: Your nurse will assess your risk for falls/injury each visit Use appropriate and safe transfer methods Be aware of medications that could predispose you to falling Wear non-skid/rubber sole footwear Use some light at night in your room Procedures Procedure Name Priority Date/Time Associated Diagnosis Comments HEMOGLOBIN - POCT (IP) [facility] Routine 05/29/2024 9:40 AM CDT Hereditary hemochromatosis PROC PHLEBOTOMY THERAPEUTIC Routine 05/19/2024 5:01 PM CDT Hereditary hemochromatosis COMPREHENSIVE METABOLIC PANEL Routine 01/28/2024 6:15 AM [facility] [address] Hereditary hemochromatosis Increased abdominal girth HEPATITIS C AB W/RFLX TO HCV RNA QN PCR Routine 01/25/2023 7:24 AM [facility] Hereditary hemochromatosis from Last 3 Months or Most Recently Relevant to Health Maintenance Results * HEMOGLOBIN - POCT (IP) [facility] (05/29/2024 9:40 AM CDT) Hemoglobin 16.1 13.5 - 17.5 g/dL [facility] Blood BLOOD SPECIMEN / Unknown 05/29/2024 9:40 AM CDT Eliana Diop MD LAB - POINT OF CARE ORDERABLES Final Result Performing Organization Address City/State/[facility] Co de Phone Number [facility] [address] [phone] * (ABNORMAL) COMPREHENSIVE METABOLIC PANEL (01/28/2024 6:15 AM [facility]) Glucose 105(H) 65 - 99 mg/dL [facility] [...] 46 U/L [facility] Comment: Test Performed at: [facility] [address] [facility] [place] [address] MIKKI HARRIS MD Blood BLOOD SPECIMEN / Unknown 01/28/2024 6:15 AM [facility] [address] 01/28/2024 6:16 [address] [facility] Nando Aguirre MD LAB - CHEMISTRY ORDERABLES Fin al Result Performing Organization Address [facility] de Phone Number [facility] [address] [place] [address] * HEPATITIS C AB W/RFLX TO HCV RNA QN PCR (01/25/2023 7:24 AM [facility]) Hepatitis C Antibody NON-REACTI VE NON-REACT [facility] Comment: HCV antibody was non-reactive. There is no laboratory evidence of HCV infection. In most cases, no further action is required. However, if recent HCV exposure is suspected, a test for HCV RNA (test code 32585) is suggested. For additional information please refer to http://education.TeamPages/faq/BEQ96u4 (This link is being provided for informational/ educational purposes only.) Test Performed at: [place] [address] MIKKI HARRIS MD Blood BLOOD SPECIMEN / Unknown 01/25/2023 7:24 AM [facility] [address] 01/25/2023 7:25 [address] [facility] [address] us Nando Aguirre MD LAB - CHEMISTRY ORDERABLES Fin al Result Performing Organization Address [facility] de Phone Number [facility] [address] [place] [address] from Last 3 Months or Most Recently Relevant to Health Maintenance Insurance ANTHEM ANTHEM Care Teams Instrument Inspector Relationship Specialty Start Date End Date Thang Castro MD PCP - General 03/28/15
[2024-07-07 06:17] VITALS: BP 188/107; PULSE 72; RESP 20; TEMP 36.1; O2SAT 96
[2024-07-07] MEDS: LACTATED RINGERS 1,000 ML 150 ML IV CONT (06:27)
[2024-07-07 06:50] VITALS: BP 179/96
--- NOTE | 2024-07-07 07:24 | WPDANESEPPF ---
Anes - Initial Pre Proc Eval Procedure: Operation Date: 07/07/24 07:30 Proposed Procedures p Colonoscopy - Kal Lewis MD Date/Time: 07/07/24 07:24 Surgeon: Kal Lewis MD Pre Op Diagnosis: hx of colon polyps Patient Data Age: 63 Gender: M Height: 1.8 m Weight: 95.7 kg Last Vital Signs Temp 97 F L 07/07/24 06:17 Pulse 72 07/07/24 06:17 Resp 20 07/07/24 06:17 BP 179/96 H 07/07/24 06:50 Pulse Ox 96 07/07/24 06:17 O2 Del Method Room Air 07/07/24 06:17 Allergies Allergy/AdvReac Type Severity Reaction Status Date / Time No Known Drug Allergies Allergy Mild Other Verified 07/07/24 06:16 Home Medications ?Medication ?Instructions ?Recorded ?Confirmed ?Type cholecalciferol (vitamin D3) 50 2,000 unit PO DAILY 03/09/22 07/07/24 History mcg (2,000 unit) capsule tadalafil 10 mg tablet (Cialis) 10 mg PO .COMPLEX PRN sexual 03/11/23 07/07/24 Rx activity #20 tabs irbesartan 300 1 tablet PO DAILY #90 tabs 07/29/23 07/07/24 Rx mg-hydrochlorothiazide 12.5 mg tablet atorvastatin 10 mg tablet 10 mg PO DAILY #90 tabs 08/03/23 07/07/24 Rx fluticasone fur. 200 mcg-umeclid 1 inh inhalation DAILY #60 ea 09/29/23 07/07/24 Rx 62.5 mcg-vilant 25 mcg inhalat.powder (Trelegy Ellipta) Patient hx anesthesia problems: none Family hx anesthesia problems: none Results Review: All pre-operative results and documents have been reviewed as part of the pre-operative evaluation. [facility] Past Medical History Medical History Deviated nasal septum GERD (gastroesophageal reflux disease) Normal barium swallow 04/26/2024. Dysphagia Hoarseness or changing voice Hepatic steatosis BMI 29.0-29.9,adult BMI 28.0-28.9,adult COPD (chronic obstructive pulmonary disease) Male erectile dysfunction, unspecified Testosterone 313 with free testosterone 49.5 on 04/02/2023. Hyperkalemia (09/03/22) potassium 5.5 on 09/03/2022. Potassium normal at 4.8 on 10/22/2022. Paresthesias in right hand Abnormal fasting glucose (09/03/22) fasting glucose 105 on 09/03/2022. Fasting glucose 97 with hemoglobin A1c 5.4 on 10/22/2022. Fasting glucose 111 with hemoglobin A1c 5.7 on 04/02/2023. Glucose 103 with hemoglobin A1c 6.1 with microalbumin ratio of 47 with GFR 92 on 03/04/2024. Protein in urine (03/20/22) trace protein 03/20/2022. Urinalysis normal on 09/03/2022. Trace protein with urine microalbumin ratio elevated at 47 on 03/04/2024. Plantar fasciitis of right foot Bilateral carotid bruits (~03/09/22) Carotid Doppler study 03/11/2022 normal. Family history of esophageal cancer EGD on 11/04/2021 with esophageal ring and 3 cm hiatal hernia with biopsies taken. Cough Obstructive sleep apnea (07/05/20) Failure on CPAP. Sleeps in recliner. AHI 17.2 with desaturation to 84% with central sleep apnea on home sleep study 07/05/2020. CPAP titration on 09/27/2020 with no clear pressure setting with suggested 14 cm water pressure with 1 cm EPR with 45 minutes ramp with rest med medium AirFit F20 fullface mask with heated humidity. Hemoglobin 15.6 on 03/20/2022. Acute bronchitis Scalp laceration Syncope BMI 27.0-27.9,adult Adenomatous colon polyp 3 tubular adenomas on colonoscopy 09/29/2019 with recheck in 5 years. Overweight (BMI 25.0-29.9) Encounter for prostate cancer screening PSA normal at 0.45 on 08/29/2021.PSA 0.55 on 09/03/2022. Seasonal allergic rhinitis Primary hypertension Hemochromatosis, hereditary Total iron elevated at 306 with 91% saturation and ferritin 120 with hemoglobin 15.4 on 08/29/2021. Iron 218 with 67% saturation and ferritin 161 on 03/20/2022. Iron elevated at 283 with 88% saturation and ferritin 248 on 09/03/2022. Mixed hyperlipidemia Total cholesterol 176, triglycerides 92, HDL 68 LDL 89 on 08/29/2021. Cholesterol 167, triglycerides 81, HDL 67, LDL 83 on 03/20/2022. Total cholesterol 196, triglycerides 208, HDL 69, LDL 97 with ratio 2.8 on 09/03/2022. Cholesterol 187, triglycerides 138, HDL 71, LDL 92 with ratio 2.6 on 04/02/2023. Cholesterol 191, triglycerides 109, HDL 73, LDL 97 with ratio 2.6 on 03/04/2024. Tobacco use disorder, continuous One pack per day Cough Acute sinusitis Surgical History Surgical History H/O colonoscopy Family History Family History Mother Acute myocardial infarction, Onset Age: 72 Sibling Acute myocardial infarction, Onset Age: 54 Pneumonia due to COVID-19 virus Father Family history of throat cancer, Onset Age: 61 Social History Social History Social History: Caffeine- coffee Smoking packs per day: 1 Smoking cigarettes per day: 20.0 Years smoked: 33 Smoking pack-years: 33.00 Smoking status: Heavy tobacco smoker Tobacco type: cigarettes Alcohol intake: current Drinks per week: 10 Alcohol use details: beer Substance use: never Substance use type: does not use Do You Feel Safe in your Home?: Yes Lack of Transportation: No Lack of Food: Never True Current Housing: I Have Housing Concerned About Future Housing: No Difficulty Paying Gas/Electric Bills: No Difficulty Paying for Meds: No Currently Unemployed: No Education: Trade/Vocational Certificate Difficulty w/ Childcare or Family Care: No Living arrangements: with family Gender identity (if verbalized by the patient): Male Spiritual care concerns: No Anes - Eval Final PreProcedure Day of Procedure 07/07/24 07:24 Patient weight: obese Heart: regular rate and rhythm Lungs: clear to auscultation Airway: Mallampati scale class II Neurological: alert and oriented Last oral intake: >/= 8 hours ASA classification: III Emergent: no Anesthetic plan: proceed Anesthesia type and monitoring: general GIVS and standard monitoring Results Review: All pre-operative results and documents have been reviewed as part of the pre-operative evaluation. Informed Consent: The patient's anesthetic plan and its attendant risks and benefits were discussed with the patient/family/POA. Questions were solicited and answers provided to the satisfaction of the patient/family/POA.
--- NOTE | 2024-07-07 07:32 | PM.HPGS ---
History of Present Illness History of Present Illness Consent: Risks, benefits, and alternatives have been discussed and questions answered. Patient agrees to proceed with procedure. Chief complaint: hx of colon polyps Narrative: Terry Gonzalez is a 63 year old male with colon polyp in 2019 Review of Systems Review of Systems: All systems reviewed & are unremarkable except as noted in HPI and below PMFSH Past Medical History Medical History Deviated nasal septum GERD (gastroesophageal reflux disease) Normal barium swallow 04/26/2024. Dysphagia Hoarseness or changing voice Hepatic steatosis BMI 29.0-29.9,adult BMI 28.0-28.9,adult COPD (chronic obstructive pulmonary disease) Male erectile dysfunction, unspecified Testosterone 313 with free testosterone 49.5 on 04/02/2023. Hyperkalemia (09/03/22) potassium 5.5 on 09/03/2022. Potassium normal at 4.8 on 10/22/2022. Paresthesias in right hand Abnormal fasting glucose (09/03/22) fasting glucose 105 on 09/03/2022. Fasting glucose 97 with hemoglobin A1c 5.4 on 10/22/2022. Fasting glucose 111 with hemoglobin A1c 5.7 on 04/02/2023. Glucose 103 with hemoglobin A1c 6.1 with microalbumin ratio of 47 with GFR 92 on 03/04/2024. Protein in urine (03/20/22) trace protein 03/20/2022. Urinalysis normal on 09/03/2022. Trace protein with urine microalbumin ratio elevated at 47 on 03/04/2024. Plantar fasciitis of right foot Bilateral carotid bruits (~03/09/22) Carotid Doppler study 03/11/2022 normal. Family history of esophageal cancer EGD on 11/04/2021 with esophageal ring and 3 cm hiatal hernia with biopsies taken. Cough Obstructive sleep apnea (07/05/20) Failure on CPAP. Sleeps in recliner. AHI 17.2 with desaturation to 84% with central sleep apnea on home sleep study 07/05/2020. CPAP titration on 09/27/2020 with no clear pressure setting with suggested 14 cm water pressure with 1 cm EPR with 45 minutes ramp with rest med [employer] AirFit F20 fullface mask with heated humidity. Hemoglobin 15.6 on 03/20/2022. Acute bronchitis Scalp laceration Syncope BMI 27.0-27.9,adult Adenomatous colon polyp 3 tubular adenomas on colonoscopy 09/29/2019 with recheck in 5 years. Overweight (BMI 25.0-29.9) Encounter for prostate cancer screening PSA normal at 0.45 on 08/29/2021.PSA 0.55 on 09/03/2022. Seasonal allergic rhinitis Primary hypertension Hemochromatosis, hereditary Total iron elevated at 306 with 91% saturation and ferritin 120 with hemoglobin 15.4 on 08/29/2021. Iron 218 with 67% saturation and ferritin 161 on 03/20/2022. Iron elevated at 283 with 88% saturation and ferritin 248 on 09/03/2022. Mixed hyperlipidemia Total cholesterol 176, triglycerides 92, HDL 68 LDL 89 on 08/29/2021. Cholesterol 167, triglycerides 81, HDL 67, LDL 83 on 03/20/2022. Total cholesterol 196, triglycerides 208, HDL 69, LDL 97 with ratio 2.8 on 09/03/2022. Cholesterol 187, triglycerides 138, HDL 71, LDL 92 with ratio 2.6 on 04/02/2023. Cholesterol 191, triglycerides 109, HDL 73, LDL 97 with ratio 2.6 on 03/04/2024. Tobacco use disorder, continuous One pack per day Cough Acute sinusitis Surgical History Surgical History H/O colonoscopy Family History Family History Mother Acute myocardial infarction, Onset Age: 72 Sibling Acute myocardial infarction, Onset Age: 54 Pneumonia due to COVID-19 virus Father Family history of throat cancer, Onset Age: 61 Social History Social History Social History: Caffeine- coffee Smoking packs per day: 1 Smoking cigarettes per day: 20.0 Years smoked: 33 Smoking pack-years: 33.00 Smoking status: Heavy tobacco smoker Tobacco type: cigarettes Alcohol intake: current Drinks per week: 10 Alcohol use details: beer Substance use: never Substance use type: does not use Do You Feel Safe in your Home?: Yes Lack of Transportation: No Lack of Food: Never True Current Housing: I Have Housing Concerned About Future Housing: No Difficulty Paying Gas/Electric Bills: No Difficulty Paying for Meds: No Currently Unemployed: No Education: Trade/Vocational Certificate Difficulty w/ Childcare or Family Care: No Living arrangements: with family Gender identity (if verbalized by the patient): Male Spiritual care concerns: No Meds Home Medications and Allergies Home Medications ?Medication ?Instructions ?Recorded ?Confirmed ?Type cholecalciferol (vitamin D3) 50 2,000 unit PO DAILY 03/09/22 07/07/24 History mcg (2,000 unit) capsule tadalafil 10 mg tablet (Cialis) 10 mg PO .COMPLEX PRN sexual 03/11/23 07/07/24 Rx activity #20 tabs irbesartan 300 1 tablet PO DAILY #90 tabs 07/29/23 07/07/24 Rx mg-hydrochlorothiazide 12.5 mg tablet atorvastatin 10 mg tablet 10 mg PO DAILY #90 tabs 08/03/23 07/07/24 Rx fluticasone fur. 200 mcg-umeclid 1 inh inhalation DAILY #60 ea 09/29/23 07/07/24 Rx 62.5 mcg-vilant 25 mcg inhalat.powder (Trelegy Ellipta) Allergies Allergy/AdvReac Type Severity Reaction Status Date / Time No Known Drug Allergies Allergy Mild Other Verified 07/07/24 06:16 Vital Signs Vital Signs - 24 hr 07/07/24 06:17 07/07/24 06:50 Temperature 97 F L Pulse Rate 72 Respiratory Rate 20 Blood Pressure 188/107 H 179/96 H Pulse Oximetry 96 Oxygen Delivery Room Air Exam Const: General: comfortable and no acute distress HENMT: Face/Nose/Sinus: Normal nares present Eyes: General: appearance normal, both eyes and all related structures Neck: Neck: no JVD Resp: Auscultation: clear to auscultation bilaterally Cardio: Rate: regular rate Rhythm: regular rhythm GI: Inspection: non-distended GI Palp: Yes Soft to palpation Skin: General skin exam: normal color Neuro: General: gait normal Speech: normal speech Extrem: General: normal to inspection Psych: Mental Status: mental status grossly normal Assessment and Plan Assessment and plan (1) Adenomatous colon polyp: Qualifiers: Colon location: unspecified part of colon Qualified Code(s): D12.6 - Benign neoplasm of colon, unspecified Code(s): D12.6 - Benign neoplasm of colon, unspecified Status: Acute Assessment and Plan: colonoscopy
[2024-07-07 07:44] VITALS: BP 154/91; PULSE 79; RESP 20; O2SAT 97
[2024-07-07 07:54] VITALS: BP 149/98; PULSE 65; RESP 18; O2SAT 98
[2024-07-07 08:04] VITALS: BP 190/95; PULSE 62; RESP 18; O2SAT 100
== END 2024-07-07 08:16 | disposition home or self-care (01) ==
PROVIDERS: PCP Family Medicine; Referring Provider Nurse Practitioner Family; Visit Provider Internal Medicine Gastroenterology
PROC: 0DJD8ZZ Inspection of Lower Intestinal Tract, Via Natural or Artificial Opening Endoscopic (ICD-10-PCS; CPT 45378; principal; 2024-07-07 07:30)
DX: Z12.11 Encounter for screening for malignant neoplasm of colon (principal); D12.2 Benign neoplasm of ascending colon; K64.8 Other hemorrhoids; I10 Essential (primary) hypertension; K21.9 Gastro-esophageal reflux disease without esophagitis; J44.9 Chronic obstructive pulmonary disease, unspecified; E78.2 Mixed hyperlipidemia; N52.9 Male erectile dysfunction, unspecified; E87.5 Hyperkalemia; E83.110 Hereditary hemochromatosis; G47.33 Obstructive sleep apnea (adult) (pediatric); R20.2 Paresthesia of skin; M72.2 Plantar fascial fibromatosis; R55 Syncope and collapse; F17.210 Nicotine dependence, cigarettes, uncomplicated; E66.9 Obesity, unspecified; Z68.29 Body mass index [BMI] 29.0-29.9, adult; Z79.51 Long term (current) use of inhaled steroids; Z80.0 Family history of malignant neoplasm of digestive organs; Z82.49 Family history of ischemic heart disease and other diseases of the circulatory system
CPT/HCPCS: 45380; 88305; J2003; J2704; J7120